=== PATIENT | female | born 1940 | race Caucasian/White ===

== ENCOUNTER 2021-01-26 00:34 | Inpatient (IN) ==
[2021-01-26] MEDS ORDERED: ALBUTEROL 2.5 MG/3 ML NEB RESP TX STA ×2 (00:51→01:35)
[2021-01-26 01:11] LABS: Basophils % 0.2 % (0.0-0.8); Eosinophils % 0.3 % (0.00-10.9); Hematocrit 40.8 VOL% (35.7-47.0); Hemoglobin 13.1 GM/DL (12.0-16.0); Immature Granulocytes % 0.5 %; Immature Granulocytes Absolute 0.06 #; Lymphocytes # 1.7 10*3/uL (1.4-4.0); Lymphocytes % 12.8 % (21.3-54.2); Mean Corpuscular HGB Conc 32.1 GM/DL (32-36); Mean Corpuscular Volume 91.5 FL (87-102); Mean Platelet Volume 9.3 FL (9.6-12.0); Monocytes % 7.5 % (1.7-12.7); Neutrophils % 78.7 % (38.7-73.9); Platelet Count 216 T/CUMM (130-400); Red Blood Count 4.46 MC/CUMM (3.8-5.5); Red Cell Distribution Width 13.2 % (9.3-17.3); White Blood Count 13.2 T/CUMM (4-12)
[2021-01-26] MEDS ORDERED: cefTRIAXone 1,000 MG in SODIUM CHLORIDE 0.9% 100 ML IV STA (01:27)
[2021-01-26] MEDS ORDERED: methylPREDNISolone SOD SUC 40 MG/1 ML VIAL IV STA (01:28)
[2021-01-26] MEDS ORDERED: AZITHROMYCIN INJ 500 MG in SODIUM CHLORIDE 0.9% 250 ML IV STA (01:28)
[2021-01-26] MEDS ORDERED: FUROSEMIDE 100 MG/10 ML VIAL IV STA (01:31)
[2021-01-26] MEDS ORDERED: FUROSEMIDE 40 MG/4 ML VIAL ONE (01:35)
[2021-01-26 01:49] LABS: ABG HCO3 24.3 MMOL/L (20-26); ABG PCO2 36.9 MM HG (35-48); ABG PH 7.422 (7.35-7.45); ABG PO2 68.4 MM HG (80-95); ABG TCO2 20.9 MMOL/L (23-27)
[2021-01-26 02:05] LABS: Alanine Aminotransferase 44 U/L (13-56); Albumin 3.1 G/DL (3.4-5.0); Alkaline Phosphatase 86 U/L (45-117); Aspartate Amino Transferase 86 U/L (0-37); Bilirubin,Total < 0.39 MG/DL (0.20-1.00); Blood Urea Nitrogen 18 MG/DL (7-18); Calcium 9.1 MG/DL (8.5-10.1); Carbon Dioxide 22 MMOL/L (21-32); Estimated Glom Filtration Rate 60 ML/MIN; Glucose 237 MG/DL (74-106); Osmolality,Calculated 288.4 MOS/KG (273-304); Potassium 3.4 MMOL/L (3.5-5.1); Sodium 140 MMOL/L (136-145); Total Protein 6.4 G/DL (6.4-8.2)
[2021-01-26] MEDS ORDERED: ONDANSETRON 4 MG/2 ML VIAL IV PRN (03:03)
[2021-01-26] MEDS ORDERED: ALBUTEROL 2.5 MG/3 ML NEB RESP TX PRN (03:03)
[2021-01-26] MEDS ORDERED: ACETAMINOPHEN 325 MG TABLET PO PRN (03:19)
[2021-01-26] MEDS ORDERED: POTASSIUM CHLORIDE 20 MEQ TABLET PO ONE (03:23)
[2021-01-26] MEDS ORDERED: NITROGLYCERIN SL 0.4 MG TABLET SL PRN (03:27)
[2021-01-26] MEDS ORDERED: MORPHINE 2 MG/1 ML SYRINGE IV PRN (03:27)
[2021-01-26 05:19] LABS: Alanine Aminotransferase 72 U/L (13-56); Albumin 3.4 G/DL (3.4-5.0); Alkaline Phosphatase 90 U/L (45-117); Aspartate Amino Transferase 318 U/L (0-37); Bilirubin,Total < 0.39 MG/DL (0.20-1.00); Blood Urea Nitrogen 19 MG/DL (7-18); Calcium 8.7 MG/DL (8.5-10.1); Carbon Dioxide 24 MMOL/L (21-32); Estimated Glom Filtration Rate 70 ML/MIN; Glucose 192 MG/DL (74-106); Osmolality,Calculated 289.1 MOS/KG (273-304); Potassium 4.3 MMOL/L (3.5-5.1); Sodium 142 MMOL/L (136-145); Total Protein 6.7 G/DL (6.4-8.2)
[2021-01-26 05:32] LABS: Risk Ratio 2.75; Thyroid Stimulating Hormone 1.72 uIU/ml (0.358-3.74); VLDL Cholesterol 19.6 MG/DL
[2021-01-26 05:33] LABS: CKMB % 11.4 %
[2021-01-26 05:37] LABS: High Sensitive Troponin I* 45515.5 ng/L (0-54)
[2021-01-26] MEDS ORDERED: HEPARIN 5,000 UNIT/1 ML VIAL IV ONE (06:58)
[2021-01-26] MEDS ORDERED: HEPARIN DRIP 25,000 UNITS/500 ML PREMIX IV SCH (07:00)
[2021-01-26] MEDS ORDERED: DIAZEPAM 5 MG TABLET PO ONE (08:22)
[2021-01-26] MEDS ORDERED: diphenhydrAMINE CAP 25 MG CAPSULE PO ONE (08:22)
[2021-01-26] MEDS ORDERED: APIXABAN 5 MG TABLET PO SCH (09:00)
[2021-01-26] MEDS ORDERED: ASPIRIN EC 81 MG TABLET PO SCH (09:00)
[2021-01-26] MEDS ORDERED: METOPROLOL SUCCINATE XL 25 MG TABLET PO SCH (09:00)
[2021-01-26] MEDS ORDERED: lisinopriL 20 MG TABLET PO SCH (09:00)
[2021-01-26 10:04] LABS: INR 1.1; PT Patient Result 12.6 SECS (10.5-12.0)
[2021-01-26 10:05] LABS: Partial Thromboplastin Time 143.5 SECS (23.8-32.1)
[2021-01-26] MEDS: carvediloL 6.25 MG TABLET PO SCH ×2 (11:42→21:45)
[2021-01-26] MEDS: NITROGLYCERIN 2% OINT 1 INCH/GM PACK TOP SCH ×3 (11:42→18:39)
[2021-01-26] MEDS: FUROSEMIDE 40 MG/4 ML VIAL IV SCH ×2 (11:47→17:18)
[2021-01-26] MEDS: FAMOTIDINE 20 MG/2 ML VIAL IV SCH ×2 (11:48→21:45)
[2021-01-26] MEDS ORDERED: LIDOCAINE 1% 20 ML VIAL ONE (14:32)
[2021-01-26] MEDS ORDERED: MIDAZOLAM 2 MG/2 ML VIAL ONE (14:41)
[2021-01-26] MEDS ORDERED: fentaNYL 100 MCG/2 ML VIAL ONE (14:42)
[2021-01-26 15:26] LABS: Bilirubin,Urine Negative (Negative); Blood, Urine Moderate mg/dL (Negative); Glucose,Urine (UA) Negative (Negative); Hyaline Casts,Urine 4 /LPF (0-3); Ketones,Urine Negative (Negative); Mucus,Urine Occasional /LPF (Occasional); Nitrite,Urine Negative (Negative); Protein,Urine Negative; RBC,Urine 7 /HPF (0-4); Urine Appearance CLEAR (Clear); Urine Color Colorless (Yellow); Urine Specific Gravity 1.006 (1.001-1.035); Urine Urobilinogen < 2.0 EU/DL (<2.0)
[2021-01-26] MEDS ORDERED: SODIUM CHLORIDE 0.9% 1,000 ML IV SCH (16:15)
[2021-01-26] MEDS: ASPIRIN 325 MG TABLET PO SCH (17:18)
[2021-01-26] MEDS ORDERED: SIMVASTATIN 40 MG TABLET PO SCH (21:00)
[2021-01-26] MEDS ORDERED: ENOXAPARIN 30 MG/0.3 ML SYRINGE SUBCUT SCH (21:00)
[2021-01-26] MEDS: AMITRIPTYLINE 25 MG TABLET PO SCH (21:45)
[2021-01-26] MEDS: MELATONIN 3 MG TABLET PO PRN (21:45)
[2021-01-26] MEDS: ROSUVASTATIN 20 MG TABLET PO SCH (21:45)
[2021-01-27] MEDS: NITROGLYCERIN 2% OINT 1 INCH/GM PACK TOP SCH ×4 (00:15→19:15)
[2021-01-27 04:40] LABS: Basophils % 0.1 % (0.0-0.8); Hematocrit 37.2 VOL% (35.7-47.0); Hemoglobin 11.7 GM/DL (12.0-16.0); Immature Granulocytes % 0.3 %; Immature Granulocytes Absolute 0.04 #; Lymphocytes # 2.3 10*3/uL (1.4-4.0); Lymphocytes % 19.9 % (21.3-54.2); Mean Corpuscular HGB Conc 31.5 GM/DL (32-36); Mean Corpuscular Volume 93.5 FL (87-102); Mean Platelet Volume 9.8 FL (9.6-12.0); Monocytes % 9.8 % (1.7-12.7); Neutrophils % 69.9 % (38.7-73.9); Platelet Count 171 T/CUMM (130-400); Red Blood Count 3.98 MC/CUMM (3.8-5.5); Red Cell Distribution Width 13.5 % (9.3-17.3); White Blood Count 11.6 T/CUMM (4-12)
[2021-01-27 05:14] LABS: Albumin 2.8 G/DL (3.4-5.0); Bilirubin,Total 0.4 MG/DL (0.20-1.00); Calcium 8.5 MG/DL (8.5-10.1); Potassium 3.8 MMOL/L (3.5-5.1); Total Protein 5.9 G/DL (6.4-8.2)
[2021-01-27] MEDS ORDERED: GLUCAGON 1 MG VIAL IM PRN (08:34)
[2021-01-27] MEDS ORDERED: DEXTROSE 50% 25 GM/50 ML SYRINGE IV PRN (08:34)
[2021-01-27] MEDS: FUROSEMIDE 40 MG/4 ML VIAL IV SCH ×2 (09:45→16:00)
[2021-01-27] MEDS: carvediloL 6.25 MG TABLET PO SCH ×2 (09:45→20:42)
[2021-01-27] MEDS: ASPIRIN 325 MG TABLET PO SCH (09:45)
[2021-01-27 09:53] LABS: ABG HCO3 27.1 MMOL/L (20-26); ABG Oxygen Saturation 97.2 % (95-100); ABG PCO2 41.6 MM HG (35-48); ABG PO2 93.7 MM HG (80-95); ABG TCO2 24.6 MMOL/L (23-27); Allen Test Positive
[2021-01-27] MEDS: CHLORHEXIDINE 0.12% ORAL RINSE 60 ML BOTTLE SWISH/SPIT SCH ×2 (10:00→20:47)
[2021-01-27] MEDS: FAMOTIDINE 20 MG/2 ML VIAL IV SCH ×2 (10:00→20:41)
[2021-01-27] MEDS: CHLORHEXIDINE 4% SOLN 118 ML BOTTLE TOP SCH ×3 (11:11→21:22)
[2021-01-27] MEDS: ASCORBIC ACID 500 MG TABLET PO SCH ×2 (12:56→20:42)
[2021-01-27] MEDS: ROSUVASTATIN 20 MG TABLET PO SCH (20:41)
[2021-01-27] MEDS: AMITRIPTYLINE 25 MG TABLET PO SCH (20:41)
[2021-01-27] MEDS: MELATONIN 3 MG TABLET PO PRN (21:22)
[2021-01-28] MEDS: NITROGLYCERIN 2% OINT 1 INCH/GM PACK TOP SCH ×3 (00:48→12:01)
[2021-01-28] MEDS ORDERED: PAPAVERINE 60 MG/2 ML VIAL ONE ×2 (04:13→09:51)
[2021-01-28] MEDS ORDERED: VANCOMYCIN 500 MG VIAL ONE (04:13)
[2021-01-28] MEDS ORDERED: VANCOMYCIN 1,000 MG VIAL ONE (04:13)
[2021-01-28 04:22] LABS: Basophils % 0.3 % (0.0-0.8); Eosinophils # 0.1 10*3/uL (0.0-0.87); Eosinophils % 0.5 % (0.00-10.9); Hematocrit 38.4 VOL% (35.7-47.0); Hemoglobin 12.3 GM/DL (12.0-16.0); Immature Granulocytes % 0.3 %; Immature Granulocytes Absolute 0.03 #; Lymphocytes # 2.8 10*3/uL (1.4-4.0); Mean Corpuscular Volume 93.4 FL (87-102); Mean Platelet Volume 10.1 FL (9.6-12.0); Monocytes % 11.1 % (1.7-12.7); Neutrophils % 58.8 % (38.7-73.9); Platelet Count 153 T/CUMM (130-400); Red Blood Count 4.11 MC/CUMM (3.8-5.5); Red Cell Distribution Width 13.6 % (9.3-17.3); White Blood Count 9.6 T/CUMM (4-12)
[2021-01-28 04:57] LABS: Albumin 2.8 G/DL (3.4-5.0); Bilirubin,Total 0.4 MG/DL (0.20-1.00); Calcium 8.6 MG/DL (8.5-10.1); Osmolality,Calculated 279.8 MOS/KG (273-304)
[2021-01-28] MEDS ORDERED: PANTOPRAZOLE 40 MG TABLET PO ONE (05:00)
[2021-01-28] MEDS ORDERED: CEFUROXIME INJ 1,500 MG in SODIUM CHLORIDE 0.9% 100 ML IV ONE (05:00)
[2021-01-28] MEDS ORDERED: SODIUM CHLORIDE 0.9% 1,000 ML IV SCH (05:00)
[2021-01-28] MEDS ORDERED: DIAZEPAM 5 MG TABLET PO ONE (05:00)
[2021-01-28 05:05] LABS: High Sensitive Troponin I* 23559.9 ng/L (0-54)
[2021-01-28] MEDS ORDERED: FAMOTIDINE 20 MG/2 ML VIAL IV ONE (06:01)
[2021-01-28] MEDS ORDERED: MINERAL OIL/PETROLATUM OPH OINT 3.5 GM TUBE ONE (06:02)
[2021-01-28] MEDS ORDERED: LACTATED RINGERS 1,000 ML IV ONE (06:08)
[2021-01-28] MEDS ORDERED: LIDOCAINE 2% 5 ML VIAL ONE ×2 (06:08→11:32)
[2021-01-28] MEDS ORDERED: VECURONIUM 10 MG VIAL IV ONE ×3 (06:08→08:59)
[2021-01-28] MEDS ORDERED: AMINOCAPROIC ACID 5,000 MG/20 ML VIAL ONE (06:08)
[2021-01-28] MEDS ORDERED: HEPARIN/NACL 0.9% 2 UNITS/ML 1,000 UNIT/500 ML BAG IV ONE (06:08)
[2021-01-28] MEDS ORDERED: PHENYLEPHRINE DRIP 20 MG/250 ML PREMIX IV ONE (06:08)
[2021-01-28] MEDS ORDERED: SEVOFLURANE 1 UNIT/15 MINUTE INH ONE (06:08)
[2021-01-28] MEDS ORDERED: SODIUM CHLORIDE 0.9% 250 ML IV ONE (06:08)
[2021-01-28] MEDS ORDERED: SODIUM CHLORIDE 0.9% 1,000 ML IV ONE (06:08)
[2021-01-28] MEDS ORDERED: MIDAZOLAM 10 MG/2 ML VIAL ONE ×4 (06:09→09:00)
[2021-01-28] MEDS ORDERED: CALCIUM CHLORIDE 1,000 MG/10 ML VIAL IV ONE ×2 (06:09→11:38)
[2021-01-28] MEDS ORDERED: SUFentanil 250 MCG/5 ML AMP ONE ×2 (06:09→07:39)
[2021-01-28] MEDS ORDERED: NITROPRUSSIDE 50 MG/2 ML VIAL ONE (06:59)
[2021-01-28] MEDS ORDERED: SODIUM BICARBONATE 50 MEQ/50 ML VIAL IV ONE ×2 (06:59→11:33)
[2021-01-28] MEDS ORDERED: POTASSIUM CHLORIDE RIDER 20 MEQ/100 ML PREMIX IV ONE (06:59)
[2021-01-28] MEDS ORDERED: PHENYLEPHRINE DRIP 40 MG/250 ML PREMIX IV ONE (07:00)
[2021-01-28] MEDS ORDERED: CALCIUM CHLORIDE 1,000 MG/10 ML SYRINGE IV ONE (07:00)
[2021-01-28] MEDS ORDERED: ALBUMIN 5% 25.0 GM/500 ML VIAL IV ONE (07:00)
[2021-01-28 07:34] LABS: ABG Base Excess 4.4 MMOL/L (-2.5-2.5); ABG HCO3 28.4 MMOL/L (20-26); ABG PCO2 36.4 MM HG (35-48); ABG TCO2 24.8 MMOL/L (23-27); Glucose Heart Surgery 107 MG/DL (74-106); Hematocrit Heart Surgery 33.3 PERCENT (37-47); Hemoglobin Heart Surgery 10.8 G/DL (12.0-16.0); Ionized Calcium Arterial 1.12 MMOL/L (1.21-1.46); PCO2 Patient Temp Arterial 36.4 MMHG; Patient Temperature 37 CELCIUS; Potassium Heart/CVR 3.2 MMOL/L (3.5-5.1); Sodium Heart/CVR 141 MMOL/L (135-145)
[2021-01-28] MEDS ORDERED: ePHEDrine 50 MG/ML VIAL ONE (07:36)
[2021-01-28] MEDS ORDERED: HEPARIN 10,000 UNIT/10 ML VIAL ONE ×2 (08:18→11:33)
[2021-01-28] MEDS ORDERED: diphenhydrAMINE 50 MG/1 ML VIAL ONE (08:59)
[2021-01-28 09:10] LABS: Hematocrit Heart Surgery 22.1 PERCENT (37-47); Hemoglobin Heart Surgery 7.1 G/DL (12.0-16.0); PCO2 Patient Temp Venous 33.7 MM HG; PH Patient Temp Venous 7.536; Potassium Heart/CVR 4.1 MMOL/L (3.5-5.1); VBG HCO3 29.6 MEQ/L (24-28); VBG Oxygen Saturation 80.4 %; VBG PH 7.491; VBG Total CO2 28.1 MMOL/L
[2021-01-28 09:44] LABS: Hemoglobin Heart Surgery 7.7 G/DL (12.0-16.0); PCO2 Patient Temp Venous 30.7 MM HG; PH Patient Temp Venous 7.566; PO2 Patient Temp Venous 33.5 MM HG; Potassium Heart/CVR 3.8 MMOL/L (3.5-5.1); VBG Base Excess 5.8 MEQ/L (0-4); VBG HCO3 29.5 MEQ/L (24-28); VBG Oxygen Saturation 79.9 %; VBG PCO2 35.5 MMHG (41-51); VBG PH 7.519; VBG PO2 41.3 MMHG (17-40); VBG Total CO2 27.1 MMOL/L
[2021-01-28 10:12] LABS: Hematocrit Heart Surgery 24.3 PERCENT (37-47); Hemoglobin Heart Surgery 7.8 G/DL (12.0-16.0); PCO2 Patient Temp Venous 30.9 MM HG; PH Patient Temp Venous 7.56; PO2 Patient Temp Venous 34.9 MM HG; Potassium Heart/CVR 3.9 MMOL/L (3.5-5.1); VBG Base Excess 5.4 MEQ/L (0-4); VBG Oxygen Saturation 72.9 %; VBG PCO2 30.9 MMHG (41-51); VBG PH 7.56; VBG PO2 34.9 MMHG (17-40)
[2021-01-28 10:42] LABS: Hemoglobin Heart Surgery 7.7 G/DL (12.0-16.0); PCO2 Patient Temp Venous 35.6 MM HG; PH Patient Temp Venous 7.51; PO2 Patient Temp Venous 36.8 MM HG; Potassium Heart/CVR 3.6 MMOL/L (3.5-5.1); VBG Base Excess 5.2 MEQ/L (0-4); VBG HCO3 28.8 MEQ/L (24-28); VBG Oxygen Saturation 72.3 %; VBG PCO2 35.6 MMHG (41-51); VBG PH 7.51; VBG PO2 36.8 MMHG (17-40); VBG Total CO2 26.7 MMOL/L
[2021-01-28] MEDS ORDERED: THROMBIN TOPICAL (RECOMBINANT) 5,000 UNIT VIAL TOP ONE (11:08)
[2021-01-28 11:29] LABS: ABG Base Excess 1.4 MMOL/L (-2.5-2.5); ABG HCO3 25.7 MMOL/L (20-26); ABG Oxygen Saturation 99.7 % (95-100); ABG PH 7.462 (7.35-7.45); ABG TCO2 23.2 MMOL/L (23-27); Glucose Heart Surgery 209 MG/DL (74-106); Hematocrit Heart Surgery 25.4 PERCENT (37-47); Hemoglobin Heart Surgery 8.2 G/DL (12.0-16.0); Ionized Calcium Arterial 1.18 MMOL/L (1.21-1.46); PH Patient Temp Arterial 7.462; Patient Temperature 37 CELCIUS; Sodium Heart/CVR 138 MMOL/L (135-145)
[2021-01-28] MEDS ORDERED: MAGNESIUM SULFATE 5 GM/10 ML VIAL IV ONE (11:32)
[2021-01-28] MEDS ORDERED: DEXTROSE 5% KCL 20 MEQ 20 MEQ/1,000 ML BAG IV ONE (11:32)
[2021-01-28] MEDS ORDERED: methylPREDNISolone SOD SUC 1,000 MG/8 ML VIAL ONE (11:32)
[2021-01-28] MEDS ORDERED: MANNITOL 100 GM/500 ML BAG IV ONE (11:32)
[2021-01-28] MEDS ORDERED: ALBUMIN 25% 25 GM/100 ML VIAL IV ONE (11:32)
[2021-01-28] MEDS ORDERED: PROTAMINE SULFATE 50 MG/5 ML VIAL IV ONE ×3 (11:33→12:44)
[2021-01-28] MEDS ORDERED: PROTAMINE SULFATE 250 MG/25 ML VIAL IV ONE (11:33)
[2021-01-28] MEDS ORDERED: FUROSEMIDE 20 MG/2 ML VIAL ONE (11:33)
[2021-01-28] MEDS: FUROSEMIDE 40 MG/4 ML VIAL IV SCH (12:00)
[2021-01-28] MEDS: ASPIRIN 325 MG TABLET PO SCH (12:00)
[2021-01-28] MEDS: ASCORBIC ACID 500 MG TABLET PO SCH (12:01)
[2021-01-28] MEDS: FAMOTIDINE 20 MG/2 ML VIAL IV SCH (12:01)
[2021-01-28] MEDS: CHLORHEXIDINE 0.12% ORAL RINSE 60 ML BOTTLE SWISH/SPIT SCH ×2 (12:01→20:29)
[2021-01-28] MEDS: carvediloL 6.25 MG TABLET PO SCH (12:01)
[2021-01-28] MEDS: LACTATED RINGERS 1,000 ML IV PRN ×3 (12:30→19:22)
[2021-01-28] MEDS ORDERED: INSULIN REGULAR 100 UNIT/ML IV PRN (13:28)
[2021-01-28] MEDS ORDERED: ACETAMINOPHEN 650 MG SUPP RECTAL PRN (13:28)
[2021-01-28] MEDS ORDERED: INSULIN REGULAR 100 UNIT/ML IV ONE (13:28)
[2021-01-28] MEDS ORDERED: ONDANSETRON 4 MG/2 ML VIAL IV PRN (13:28)
[2021-01-28] MEDS ORDERED: MAGNESIUM SULF RIDER 2 GM/50 ML PREMIX IV PRN (13:28)
[2021-01-28] MEDS ORDERED: INSULIN REGULAR DRIP 100 ML IV SCH (13:28)
[2021-01-28] MEDS ORDERED: DEXTROSE 50% 25 GM/50 ML SYRINGE IV PRN ×2 (13:28)
[2021-01-28] MEDS ORDERED: VECURONIUM 10 MG VIAL IV PRN ×2 (13:28)
[2021-01-28] MEDS ORDERED: LACTATED RINGERS 250 ML IV PRN (13:28)
[2021-01-28] MEDS ORDERED: CALCIUM CHLORIDE 1,000 MG/10 ML SYRINGE IV PRN (13:28)
[2021-01-28] MEDS ORDERED: MAGNESIUM SULF RIDER 4 GM/100 ML PREMIX IV PRN (13:28)
[2021-01-28] MEDS ORDERED: PHENYLEPHRINE DRIP 40 MG/250 ML PREMIX IV PRN (13:28)
[2021-01-28] MEDS ORDERED: POTASSIUM CHLORIDE RIDER 10 MEQ/100 ML PREMIX IV PRN (13:28)
[2021-01-28] MEDS ORDERED: MIDAZOLAM 10 MG/2 ML VIAL IV PRN (13:28)
[2021-01-28 13:38] LABS: Basophils % 0.1 % (0.0-0.8); Eosinophils % 0.1 % (0.00-10.9); Hematocrit 24.7 VOL% (35.7-47.0); Hemoglobin 7.9 GM/DL (12.0-16.0); Immature Granulocytes Absolute 0.08 #; Lymphocytes # 0.9 10*3/uL (1.4-4.0); Lymphocytes % 11.2 % (21.3-54.2); Mean Corpuscular Volume 91.8 FL (87-102); Mean Platelet Volume 9.8 FL (9.6-12.0); Monocytes % 7.9 % (1.7-12.7); Neutrophils % 79.7 % (38.7-73.9); Platelet Count 114 T/CUMM (130-400); Red Blood Count 2.69 MC/CUMM (3.8-5.5); Red Cell Distribution Width 13.5 % (9.3-17.3); White Blood Count 7.8 T/CUMM (4-12)
[2021-01-28 13:42] LABS: ABG Base Excess 2.5 MMOL/L (-2.5-2.5); ABG HCO3 26.7 MMOL/L (20-26); ABG Oxygen Saturation 99.8 % (95-100); ABG PCO2 30.7 MM HG (35-48); ABG TCO2 23.2 MMOL/L (23-27); Glucose Heart Surgery 190 MG/DL (74-106); Hematocrit Heart Surgery 25.4 PERCENT (37-47); Hemoglobin Heart Surgery 8.2 G/DL (12.0-16.0); Potassium Heart/CVR 4.4 MMOL/L (3.5-5.1)
[2021-01-28 13:47] LABS: INR 1.2; PT Patient Result 12.9 SECS (10.5-12.0); Partial Thromboplastin Time 27.5 SECS (23.8-32.1)
[2021-01-28 13:56] LABS: Albumin 2.7 G/DL (3.4-5.0); Bilirubin,Total 0.8 MG/DL (0.20-1.00); Calcium 9.7 MG/DL (8.5-10.1); Osmolality,Calculated 294.8 MOS/KG (273-304); Potassium 4.5 MMOL/L (3.5-5.1); Total Protein 5.3 G/DL (6.4-8.2)
[2021-01-28 14:03] LABS: CKMB % 7.1 %
[2021-01-28 14:05] LABS: High Sensitive Troponin I* 26435.8 ng/L (0-54)
[2021-01-28] MEDS ORDERED: NITROGLYCERIN DRIP 50 MG/250 ML BOTTLE IV ONE (14:28)
[2021-01-28] MEDS: NITROGLYCERIN DRIP 50 MG/250 ML BOTTLE IV PRN (14:28)
[2021-01-28] MEDS: SODIUM CHLORIDE 0.45% 1,000 ML IV SCH ×2 (14:44→14:45)
[2021-01-28] MEDS: KETOROLAC 15 MG/1 ML VIAL IV SCH ×2 (14:54→20:26)
[2021-01-28 15:03] LABS: Band Neutrophils 3 % (0-10); Lymphocytes 13 % (20-55); Segmented Neutrophils 81 % (50-85)
[2021-01-28 15:06] LABS: Atypical Lymphocytes Few
[2021-01-28 15:07] LABS: Smudge Cells Few
[2021-01-28 15:08] LABS: Platelet Estimate Normal; Total Cells Counted 100
[2021-01-28] MEDS: POTASSIUM CHLORIDE RIDER 20 MEQ/100 ML PREMIX IV PRN ×5 (15:30→22:39)
[2021-01-28 15:43] LABS: ABG Base Excess 2.3 MMOL/L (-2.5-2.5); ABG HCO3 26.5 MMOL/L (20-26); ABG Oxygen Saturation 97.7 % (95-100); ABG PCO2 34.2 MM HG (35-48); ABG PO2 90.1 MM HG (80-95); ABG TCO2 22.6 MMOL/L (23-27); Glucose Heart Surgery 207 MG/DL (74-106); Hematocrit Heart Surgery 35.7 PERCENT (37-47); Hemoglobin Heart Surgery 11.6 G/DL (12.0-16.0); Potassium Heart/CVR 3.7 MMOL/L (3.5-5.1)
[2021-01-28] MEDS: NITROPRUSSIDE 100 MG in DEXTROSE 5% 250 ML IV PRN (15:45)
[2021-01-28] MEDS: ALBUMIN 5% 12.5 GM/250 ML VIAL IV PRN ×5 (16:20→21:41)
[2021-01-28] MEDS: MIDAZOLAM 2 MG/2 ML VIAL IV PRN ×2 (17:15→20:19)
[2021-01-28 17:51] LABS: ABG Base Excess 0.5 MMOL/L (-2.5-2.5); ABG HCO3 24.9 MMOL/L (20-26); ABG Oxygen Saturation 98.8 % (95-100); ABG PH 7.487 (7.35-7.45); ABG TCO2 21.6 MMOL/L (23-27); Glucose Heart Surgery 200 MG/DL (74-106); Hematocrit Heart Surgery 27.5 PERCENT (37-47); Hemoglobin Heart Surgery 8.9 G/DL (12.0-16.0); Potassium Heart/CVR 4.7 MMOL/L (3.5-5.1)
[2021-01-28] MEDS ORDERED: DOBUTamine 500 MG/250 ML PREMIX IV ONE (18:10)
[2021-01-28] MEDS ORDERED: FUROSEMIDE 40 MG/4 ML VIAL ONE (18:16)
[2021-01-28] MEDS ORDERED: hydrALAZINE 20 MG/1 ML VIAL ONE (18:16)
[2021-01-28] MEDS: hydrALAZINE 20 MG/1 ML VIAL IV PRN (18:20)
[2021-01-28] MEDS: DOBUTamine 500 MG/250 ML PREMIX IV SCH (18:20)
[2021-01-28] MEDS ORDERED: FUROSEMIDE 40 MG/4 ML VIAL IV ONE ×2 (18:22→23:57)
[2021-01-28] MEDS: METOPROLOL TARTRATE 25 MG TABLET PO SCH (18:45)
[2021-01-28 19:23] LABS: ABG HCO3 25.3 MMOL/L (20-26); ABG Oxygen Saturation 99.3 % (95-100); ABG PCO2 33.4 MM HG (35-48); ABG PH 7.469 (7.35-7.45); ABG TCO2 22.1 MMOL/L (23-27); Glucose Heart Surgery 208 MG/DL (74-106); Hematocrit Heart Surgery 29.8 PERCENT (37-47); Hemoglobin Heart Surgery 9.6 G/DL (12.0-16.0); Potassium Heart/CVR 3.7 MMOL/L (3.5-5.1)
[2021-01-28 19:44] LABS: CKMB % 6.2 %
[2021-01-28 19:46] LABS: High Sensitive Troponin I* 22079.8 ng/L (0-54)
[2021-01-28] MEDS: CEFUROXIME INJ 1,500 MG in SODIUM CHLORIDE 0.9% 100 ML IV SCH (20:27)
[2021-01-28] MEDS: DEXMEDETOMIDINE 200 MCG in SODIUM CHLORIDE 0.9% 48 ML IV PRN (21:05)
[2021-01-28 21:20] LABS: ABG Base Excess 1.6 MMOL/L (-2.5-2.5); ABG HCO3 24.4 MMOL/L (20-26); ABG Oxygen Saturation 98.2 % (95-100); ABG PCO2 32.5 MM HG (35-48); ABG PH 7.494 (7.35-7.45); ABG PO2 144.1 MM HG (80-95); ABG TCO2 25.4 MMOL/L (23-27); Glucose Heart Surgery 181 MG/DL (74-106); Hemoglobin Heart Surgery 11.1 G/DL (12.0-16.0); Potassium Heart/CVR 3.9 MMOL/L (3.5-5.1)
[2021-01-28] MEDS: MORPHINE 10 MG/1 ML VIAL IV PRN (21:27)
[2021-01-28 22:01] LABS: CKMB % 7.4 %; High Sensitive Troponin I* 21265.1 ng/L (0-54)
[2021-01-28 22:27] LABS: ABG Base Excess 0.7 MMOL/L (-2.5-2.5); ABG HCO3 25.1 MMOL/L (20-26); ABG PCO2 33.4 MM HG (35-48); ABG PH 7.464 (7.35-7.45); ABG TCO2 21.7 MMOL/L (23-27); Glucose Heart Surgery 171 MG/DL (74-106); Hemoglobin Heart Surgery 10.3 G/DL (12.0-16.0); Potassium Heart/CVR 3.8 MMOL/L (3.5-5.1)
[2021-01-29 00:09] LABS: ABG Base Excess 0.7 MMOL/L (-2.5-2.5); ABG HCO3 24.7 MMOL/L (20-26); ABG Oxygen Saturation 97.3 % (95-100); ABG PCO2 37.7 MM HG (35-48); ABG PH 7.435 (7.35-7.45); ABG PO2 105.8 MM HG (80-95); ABG TCO2 25.9 MMOL/L (23-27); Glucose Heart Surgery 156 MG/DL (74-106); Hemoglobin Heart Surgery 11.2 G/DL (12.0-16.0); Potassium Heart/CVR 4.3 MMOL/L (3.5-5.1)
[2021-01-29] MEDS: KETOROLAC 15 MG/1 ML VIAL IV SCH ×4 (01:30→19:35)
[2021-01-29] MEDS: MIDAZOLAM 2 MG/2 ML VIAL IV PRN (02:52)
[2021-01-29 03:25] LABS: Hematocrit Heart Surgery 32.7 PERCENT (37-47); Hemoglobin Heart Surgery 10.6 G/DL (12.0-16.0); PCO2 Patient Temp Venous 45.8 MM HG; PH Patient Temp Venous 7.383; PO2 Patient Temp Venous 35.6 MM HG; Potassium Heart/CVR 4.1 MMOL/L (3.5-5.1); VBG Base Excess 1.8 MEQ/L (0-4); VBG HCO3 25.4 MEQ/L (24-28); VBG Oxygen Saturation 62.4 %; VBG PCO2 45.8 MMHG (41-51); VBG PH 7.383; VBG PO2 35.6 MMHG (17-40); VBG Total CO2 24.9 MMOL/L
[2021-01-29 04:27] LABS: ABG Base Excess 1.6 MMOL/L (-2.5-2.5); ABG HCO3 25.9 MMOL/L (20-26); ABG Oxygen Saturation 97.2 % (95-100); ABG PCO2 39.4 MM HG (35-48); ABG PH 7.435 (7.35-7.45); ABG PO2 104.5 MM HG (80-95); ABG TCO2 27.1 MMOL/L (23-27); Glucose Heart Surgery 139 MG/DL (74-106); Hemoglobin Heart Surgery 11.3 G/DL (12.0-16.0); Potassium Heart/CVR 4.1 MMOL/L (3.5-5.1)
[2021-01-29 04:28] LABS: Basophils % 0.1 % (0.0-0.8); Hematocrit 31.7 VOL% (35.7-47.0); Immature Granulocytes % 0.5 %; Immature Granulocytes Absolute 0.04 #; Lymphocytes # 0.8 10*3/uL (1.4-4.0); Lymphocytes % 9.5 % (21.3-54.2); Mean Corpuscular HGB Conc 33.1 GM/DL (32-36); Mean Corpuscular Volume 88.3 FL (87-102); Mean Platelet Volume 9.9 FL (9.6-12.0); Monocytes % 6.6 % (1.7-12.7); Neutrophils % 83.3 % (38.7-73.9); Platelet Count 85 T/CUMM (130-400); Red Blood Count 3.59 MC/CUMM (3.8-5.5); Red Cell Distribution Width 14.6 % (9.3-17.3); White Blood Count 8.7 T/CUMM (4-12)
[2021-01-29 04:29] LABS: Hemoglobin 10.5 GM/DL (12.0-16.0)
[2021-01-29] MEDS: DEXMEDETOMIDINE 200 MCG in SODIUM CHLORIDE 0.9% 48 ML IV PRN ×2 (04:48→13:31)
[2021-01-29 04:53] LABS: Albumin 3.3 G/DL (3.4-5.0); Bilirubin,Direct 0.24 MG/DL (0.0-0.20); Bilirubin,Total 0.8 MG/DL (0.20-1.00); CKMB % 8.2 %; Calcium 8.1 MG/DL (8.5-10.1); High Sensitive Troponin I* 21605.3 ng/L (0-54); Osmolality,Calculated 292.7 MOS/KG (273-304); Potassium 4.2 MMOL/L (3.5-5.1); Total Protein 5.3 G/DL (6.4-8.2)
[2021-01-29 05:07] LABS: Hypochromia Slight; Microcytosis Slight; Platelet Estimate Decreased
[2021-01-29] MEDS: METOPROLOL TARTRATE 25 MG TABLET PO SCH ×2 (05:54→18:20)
[2021-01-29 07:44] LABS: ABG Base Excess 1.7 MMOL/L (-2.5-2.5); ABG HCO3 25.9 MMOL/L (20-26); ABG Oxygen Saturation 97.4 % (95-100); ABG PH 7.431 (7.35-7.45); ABG PO2 92.7 MM HG (80-95); ABG TCO2 23.4 MMOL/L (23-27); Glucose Heart Surgery 134 MG/DL (74-106); Hematocrit Heart Surgery 32.6 PERCENT (37-47); Hemoglobin Heart Surgery 10.6 G/DL (12.0-16.0); Potassium Heart/CVR 4.2 MMOL/L (3.5-5.1)
[2021-01-29] MEDS: CEFUROXIME INJ 1,500 MG in SODIUM CHLORIDE 0.9% 100 ML IV SCH ×2 (10:03→21:21)
[2021-01-29] MEDS: ALBUMIN 5% 12.5 GM/250 ML VIAL IV PRN ×3 (10:08→21:12)
[2021-01-29] MEDS ORDERED: GLUCAGON 1 MG VIAL IM PRN (10:12)
[2021-01-29] MEDS ORDERED: DEXTROSE 50% 25 GM/50 ML SYRINGE IV PRN (10:16)
[2021-01-29] MEDS: FUROSEMIDE 40 MG/4 ML VIAL IV SCH ×2 (11:25→16:42)
[2021-01-29] MEDS: CHLORHEXIDINE 0.12% ORAL RINSE 60 ML BOTTLE SWISH/SPIT SCH ×2 (11:26→20:08)
[2021-01-29] MEDS: MORPHINE 10 MG/1 ML VIAL IV PRN (12:23)
[2021-01-29 13:52] LABS: ABG Base Excess 1.3 MMOL/L (-2.5-2.5); ABG HCO3 25.6 MMOL/L (20-26); ABG Oxygen Saturation 96.2 % (95-100); ABG PCO2 39.6 MM HG (35-48); ABG PH 7.422 (7.35-7.45); ABG PO2 82.3 MM HG (80-95); ABG TCO2 23.5 MMOL/L (23-27); Glucose Heart Surgery 158 MG/DL (74-106); Hematocrit Heart Surgery 29.8 PERCENT (37-47); Hemoglobin Heart Surgery 9.6 G/DL (12.0-16.0); Potassium Heart/CVR 3.7 MMOL/L (3.5-5.1)
[2021-01-29 13:55] LABS: VBG HCO3 25.7 MEQ/L (24-28); VBG Oxygen Saturation 65.7 %; VBG PCO2 44.9 MMHG (41-51); VBG PH 7.393; VBG PO2 37.7 MMHG (17-40); VBG Total CO2 25.1 MMOL/L
[2021-01-29] MEDS: INSULIN REGULAR 100 UNIT/ML SUBCUT SCH ×3 (14:05→23:22)
[2021-01-29] MEDS: POTASSIUM CHLORIDE RIDER 20 MEQ/100 ML PREMIX IV PRN ×2 (14:06→23:16)
[2021-01-29 14:12] LABS: High Sensitive Troponin I* 16419.5 ng/L (0-54)
[2021-01-29 15:08] LABS: ABG Base Excess 2.7 MMOL/L (-2.5-2.5); ABG HCO3 26.8 MMOL/L (20-26); ABG Oxygen Saturation 96.1 % (95-100); ABG PCO2 38.9 MM HG (35-48); ABG PH 7.447 (7.35-7.45); ABG PO2 82.3 MM HG (80-95); ABG TCO2 24.5 MMOL/L (23-27); Glucose Heart Surgery 149 MG/DL (74-106); Hematocrit Heart Surgery 29.5 PERCENT (37-47); Hemoglobin Heart Surgery 9.5 G/DL (12.0-16.0); Potassium Heart/CVR 4.2 MMOL/L (3.5-5.1)
[2021-01-29] MEDS: SODIUM CHLORIDE 0.45% 1,000 ML IV SCH ×2 (15:11→15:12)
[2021-01-29] MEDS ORDERED: NITROPRUSSIDE 50 MG/2 ML VIAL ONE (15:35)
[2021-01-29] MEDS: DOBUTamine 500 MG/250 ML PREMIX IV SCH ×2 (16:46→18:00)
[2021-01-29] MEDS: NITROPRUSSIDE 100 MG in DEXTROSE 5% 250 ML IV PRN (16:47)
[2021-01-29] MEDS: NITROGLYCERIN DRIP 50 MG/250 ML BOTTLE IV PRN (16:47)
[2021-01-29 17:07] LABS: ABG Base Excess 2.9 MMOL/L (-2.5-2.5); ABG Oxygen Saturation 97.3 % (95-100); ABG PH 7.456 (7.35-7.45); ABG PO2 87.3 MM HG (80-95); ABG TCO2 24.4 MMOL/L (23-27); Glucose Heart Surgery 142 MG/DL (74-106); Hematocrit Heart Surgery 29.8 PERCENT (37-47); Hemoglobin Heart Surgery 9.6 G/DL (12.0-16.0); Potassium Heart/CVR 3.9 MMOL/L (3.5-5.1)
[2021-01-29] MEDS ORDERED: MORPHINE 2 MG/1 ML SYRINGE IV PRN (17:15)
[2021-01-29] MEDS ORDERED: MORPHINE 2 MG/1 ML SYRINGE ONE (17:29)
[2021-01-29] MEDS: MORPHINE 2 MG/1 ML SYRINGE IV PRN (17:30)
[2021-01-29] MEDS ORDERED: MORPHINE 10 MG/1 ML VIAL IV PRN (17:43)
[2021-01-29 18:31] LABS: ABG Base Excess 2.4 MMOL/L (-2.5-2.5); ABG HCO3 26.5 MMOL/L (20-26); ABG Oxygen Saturation 95.9 % (95-100); ABG PCO2 38.7 MM HG (35-48); ABG PH 7.444 (7.35-7.45); ABG TCO2 24.1 MMOL/L (23-27); Glucose Heart Surgery 146 MG/DL (74-106); Hematocrit Heart Surgery 30.3 PERCENT (37-47); Hemoglobin Heart Surgery 9.8 G/DL (12.0-16.0); Potassium Heart/CVR 3.9 MMOL/L (3.5-5.1)
[2021-01-29] MEDS ORDERED: AMIODARONE INJ 150 MG in DEXTROSE 5% 100 ML IV ONE (18:59)
[2021-01-29] MEDS ORDERED: AMIODARONE INJ 450 MG in DEXTROSE 5% 241 ML IV SCH (19:00)
[2021-01-29] MEDS ORDERED: SODIUM CHLORIDE 0.45% 1,000 ML IV SCH (19:02)
[2021-01-29] MEDS: oxyCODONE/ACETAMINOPHEN 5-325 MG TABLET PO PRN (20:07)
[2021-01-29] MEDS: LACTATED RINGERS 1,000 ML IV PRN (23:20)
[2021-01-30] MEDS: MORPHINE 2 MG/1 ML SYRINGE IV PRN ×2 (00:12→02:40)
[2021-01-30] MEDS ORDERED: AMIODARONE INJ 450 MG in DEXTROSE 5% 241 ML IV SCH (02:00)
[2021-01-30] MEDS: INSULIN REGULAR 100 UNIT/ML SUBCUT SCH ×5 (02:02→21:55)
[2021-01-30 04:32] LABS: ABG Base Excess 1.7 MMOL/L (-2.5-2.5); ABG HCO3 25.9 MMOL/L (20-26); ABG Oxygen Saturation 99.2 % (95-100); ABG PCO2 37.9 MM HG (35-48); ABG TCO2 23.7 MMOL/L (23-27); Glucose Heart Surgery 152 MG/DL (74-106); Hematocrit Heart Surgery 27.6 PERCENT (37-47); Hemoglobin Heart Surgery 8.9 G/DL (12.0-16.0)
[2021-01-30 04:33] LABS: Hematocrit 26.6 VOL% (35.7-47.0); Hemoglobin 8.8 GM/DL (12.0-16.0); Immature Granulocytes % 0.6 %; Immature Granulocytes Absolute 0.07 #; Lymphocytes # 1.4 10*3/uL (1.4-4.0); Lymphocytes % 11.4 % (21.3-54.2); Mean Corpuscular HGB Conc 33.1 GM/DL (32-36); Mean Corpuscular Volume 89.6 FL (87-102); Mean Platelet Volume 10.7 FL (9.6-12.0); Monocytes % 11.7 % (1.7-12.7); Neutrophils % 76.3 % (38.7-73.9); Platelet Count 86 T/CUMM (130-400); Red Blood Count 2.97 MC/CUMM (3.8-5.5); Red Cell Distribution Width 14.6 % (9.3-17.3); White Blood Count 11.9 T/CUMM (4-12)
[2021-01-30 04:53] LABS: Albumin 3.4 G/DL (3.4-5.0); Bilirubin,Direct 0.19 MG/DL (0.0-0.20); Bilirubin,Total 0.5 MG/DL (0.20-1.00); Calcium 7.9 MG/DL (8.5-10.1); Hypochromia Slight; Microcytosis 1+; Osmolality,Calculated 288.4 MOS/KG (273-304); Total Protein 5.5 G/DL (6.4-8.2)
[2021-01-30 04:54] LABS: Platelet Estimate Decreased
[2021-01-30] MEDS: POTASSIUM CHLORIDE RIDER 20 MEQ/100 ML PREMIX IV PRN (05:03)
[2021-01-30] MEDS: FUROSEMIDE 40 MG/4 ML VIAL IV SCH ×2 (05:04→17:50)
[2021-01-30] MEDS: METOPROLOL TARTRATE 25 MG TABLET PO SCH ×2 (05:46→17:48)
[2021-01-30] MEDS: hydrALAZINE 20 MG/1 ML VIAL IV PRN (07:35)
[2021-01-30] MEDS ORDERED: PNEUMOCOCCAL VACCINE (13 VALENT) 0.5 ML SYRINGE IM ONE (09:00)
[2021-01-30] MEDS: lisinopriL 20 MG TABLET PO SCH (09:02)
[2021-01-30] MEDS: ASPIRIN EC 81 MG TABLET PO SCH (09:02)
[2021-01-30] MEDS: CHLORHEXIDINE 0.12% ORAL RINSE 60 ML BOTTLE SWISH/SPIT SCH ×2 (09:02→21:53)
[2021-01-30] MEDS: AMIODARONE 200 MG TABLET PO SCH ×2 (09:02→21:52)
[2021-01-30] MEDS ORDERED: HEPARIN/NACL 0.9% 2 UNITS/ML 1,000 UNIT/500 ML BAG IV ONE (13:10)
[2021-01-30] MEDS ORDERED: HEPARIN/NACL 0.9% 2 UNITS/ML 1,000 UNIT/500 ML BAG IV SCH (14:00)
[2021-01-30 14:10] LABS: ABG Base Excess 0.4 MMOL/L (-2.5-2.5); ABG HCO3 21.9 MMOL/L (20-26); ABG Oxygen Saturation 97.1 % (95-100); ABG PCO2 26.7 MM HG (35-48); ABG PH 7.532 (7.35-7.45); ABG PO2 88.3 MM HG (80-95); ABG TCO2 22.7 MMOL/L (23-27); Glucose Heart Surgery 156 MG/DL (74-106); Hemoglobin Heart Surgery 12.8 G/DL (12.0-16.0); Potassium Heart/CVR 3.9 MMOL/L (3.5-5.1)
[2021-01-31] MEDS: hydrALAZINE 20 MG/1 ML VIAL IV PRN (01:30)
[2021-01-31 05:11] LABS: Basophils % 0.1 % (0.0-0.8); Hematocrit 37.6 VOL% (35.7-47.0); Hemoglobin 12.3 GM/DL (12.0-16.0); Immature Granulocytes % 1.3 %; Immature Granulocytes Absolute 0.19 #; Lymphocytes % 7.1 % (21.3-54.2); Mean Corpuscular HGB Conc 32.7 GM/DL (32-36); Mean Corpuscular Volume 89.3 FL (87-102); Mean Platelet Volume 10.3 FL (9.6-12.0); Monocytes % 8.7 % (1.7-12.7); NRBC # 0.02 10*3/uL; Neutrophils % 82.8 % (38.7-73.9); Platelet Count 109 T/CUMM (130-400); Red Blood Count 4.21 MC/CUMM (3.8-5.5); Red Cell Distribution Width 14.6 % (9.3-17.3); White Blood Count 14.6 T/CUMM (4-12)
[2021-01-31 05:36] LABS: Albumin 3.6 G/DL (3.4-5.0); Bilirubin,Direct 0.28 MG/DL (0.0-0.20); Bilirubin,Total 0.9 MG/DL (0.20-1.00); Calcium 9.1 MG/DL (8.5-10.1); Osmolality,Calculated 285.7 MOS/KG (273-304); Potassium 3.8 MMOL/L (3.5-5.1); Total Protein 6.5 G/DL (6.4-8.2)
[2021-01-31 05:46] LABS: Calcium 8.8 MG/DL (8.5-10.1); Osmolality,Calculated 285.7 MOS/KG (273-304); Potassium 3.8 MMOL/L (3.5-5.1)
[2021-01-31 05:51] LABS: CKMB % 4.2 %
[2021-01-31 05:54] LABS: High Sensitive Troponin I* 6344.4 ng/L (0-54)
[2021-01-31] MEDS: METOPROLOL TARTRATE 25 MG TABLET PO SCH (06:18)
[2021-01-31] MEDS: POTASSIUM CHLORIDE RIDER 20 MEQ/100 ML PREMIX IV PRN ×2 (06:30→07:00)
[2021-01-31] MEDS: DOCUSATE SODIUM 100 MG CAPSULE PO SCH (08:52)
[2021-01-31] MEDS: METOPROLOL TARTRATE 50 MG TABLET PO SCH ×2 (08:52→21:32)
[2021-01-31] MEDS: ASCORBIC ACID 500 MG TABLET PO SCH ×2 (08:52→21:31)
[2021-01-31] MEDS: INSULIN REGULAR 100 UNIT/ML SUBCUT SCH ×4 (08:53→21:33)
[2021-01-31] MEDS: lisinopriL 20 MG TABLET PO SCH (08:53)
[2021-01-31] MEDS: AMIODARONE 200 MG TABLET PO SCH ×2 (08:53→21:32)
[2021-01-31] MEDS: FUROSEMIDE 40 MG/4 ML VIAL IV SCH ×2 (08:53→17:00)
[2021-01-31] MEDS: ASPIRIN EC 81 MG TABLET PO SCH (08:53)
[2021-01-31] MEDS: CHLORHEXIDINE 0.12% ORAL RINSE 60 ML BOTTLE SWISH/SPIT SCH ×2 (08:54→21:37)
[2021-01-31] MEDS ORDERED: METOPROLOL TARTRATE 50 MG TABLET PO SCH ×2 (09:00)
[2021-01-31] MEDS: amLODIPine 5 MG TABLET PO SCH ×2 (14:02→21:32)
[2021-01-31] MEDS: ROSUVASTATIN 20 MG TABLET PO SCH (21:31)
[2021-01-31] MEDS: APIXABAN 5 MG TABLET PO SCH (21:32)
[2021-02-01 05:26] LABS: Basophils % 0.1 % (0.0-0.8); Hematocrit 36.7 VOL% (35.7-47.0); Immature Granulocytes % 1.1 %; Immature Granulocytes Absolute 0.16 #; Lymphocytes # 1.5 10*3/uL (1.4-4.0); Lymphocytes % 9.9 % (21.3-54.2); Mean Corpuscular HGB Conc 32.7 GM/DL (32-36); Mean Platelet Volume 10.3 FL (9.6-12.0); Monocytes % 10.6 % (1.7-12.7); Neutrophils % 78.3 % (38.7-73.9); Platelet Count 150 T/CUMM (130-400); Red Blood Count 4.08 MC/CUMM (3.8-5.5); Red Cell Distribution Width 14.6 % (9.3-17.3)
[2021-02-01 05:47] LABS: Albumin 3.4 G/DL (3.4-5.0); Bilirubin,Direct 0.25 MG/DL (0.0-0.20); Bilirubin,Indirect 0.7 MG/DL (0.0-1.0); Bilirubin,Total 0.9 MG/DL (0.20-1.00); Calcium 8.9 MG/DL (8.5-10.1); Osmolality,Calculated 286.5 MOS/KG (273-304); Potassium 3.8 MMOL/L (3.5-5.1); Total Protein 6.3 G/DL (6.4-8.2)
[2021-02-01] MEDS: INSULIN REGULAR 100 UNIT/ML SUBCUT SCH ×4 (07:51→20:41)
[2021-02-01] MEDS: ASPIRIN EC 81 MG TABLET PO SCH (08:06)
[2021-02-01] MEDS: FUROSEMIDE 40 MG/4 ML VIAL IV SCH ×2 (08:06→16:34)
[2021-02-01] MEDS: ASCORBIC ACID 500 MG TABLET PO SCH ×2 (08:06→20:40)
[2021-02-01] MEDS: METOPROLOL TARTRATE 50 MG TABLET PO SCH ×3 (08:06→20:40)
[2021-02-01] MEDS: APIXABAN 5 MG TABLET PO SCH ×2 (08:07→20:40)
[2021-02-01] MEDS: DOCUSATE SODIUM 100 MG CAPSULE PO SCH (08:07)
[2021-02-01] MEDS: amLODIPine 5 MG TABLET PO SCH (08:07)
[2021-02-01] MEDS: lisinopriL 20 MG TABLET PO SCH (08:07)
[2021-02-01] MEDS: AMIODARONE 200 MG TABLET PO SCH ×2 (08:08→20:41)
[2021-02-01] MEDS: POLYETHYLENE GLYCOL POWDER 17 GM PACK PO SCH (08:09)
[2021-02-01] MEDS: CHLORHEXIDINE 0.12% ORAL RINSE 60 ML BOTTLE SWISH/SPIT SCH ×2 (08:09→21:28)
[2021-02-01] MEDS: ROSUVASTATIN 20 MG TABLET PO SCH (20:40)
[2021-02-01] MEDS ORDERED: METOPROLOL TARTRATE 50 MG TABLET PO SCH (21:00)
[2021-02-02 05:13] LABS: Basophils % 0.1 % (0.0-0.8); Eosinophils % 0.2 % (0.00-10.9); Hematocrit 37.7 VOL% (35.7-47.0); Hemoglobin 11.9 GM/DL (12.0-16.0); Immature Granulocytes % 1.1 %; Immature Granulocytes Absolute 0.13 #; Lymphocytes # 2.6 10*3/uL (1.4-4.0); Mean Corpuscular HGB Conc 31.6 GM/DL (32-36); Mean Corpuscular Volume 91.1 FL (87-102); Mean Platelet Volume 10.1 FL (9.6-12.0); Monocytes % 13.7 % (1.7-12.7); Neutrophils % 63.9 % (38.7-73.9); Platelet Count 167 T/CUMM (130-400); Red Blood Count 4.14 MC/CUMM (3.8-5.5); Red Cell Distribution Width 14.7 % (9.3-17.3); White Blood Count 12.2 T/CUMM (4-12)
[2021-02-02 05:33] LABS: Calcium 8.5 MG/DL (8.5-10.1); Osmolality,Calculated 289.3 MOS/KG (273-304); Potassium 3.1 MMOL/L (3.5-5.1)
[2021-02-02] MEDS: POTASSIUM CHLORIDE RIDER 20 MEQ/100 ML PREMIX IV PRN ×2 (06:10→07:00)
[2021-02-02] MEDS ORDERED: ACETAMINOPHEN 325 MG TABLET PO PRN (07:40)
[2021-02-02] MEDS ORDERED: DEXTROSE 50% 25 GM/50 ML SYRINGE IV PRN (07:40)
[2021-02-02] MEDS ORDERED: MAGNESIUM SULF RIDER 2 GM/50 ML PREMIX IV PRN (07:40)
[2021-02-02] MEDS ORDERED: POTASSIUM CHLORIDE 20 MEQ TABLET PO PRN (07:40)
[2021-02-02] MEDS ORDERED: GLUCAGON 1 MG VIAL IM PRN (07:40)
[2021-02-02] MEDS ORDERED: NITROGLYCERIN SL 0.4 MG TABLET SL PRN (07:40)
[2021-02-02] MEDS ORDERED: ALUMINUM/MAGNES/SIMETH MAX STR 30 ML UDCUP PO PRN (07:40)
[2021-02-02] MEDS ORDERED: ONDANSETRON 4 MG/2 ML VIAL IV PRN (07:40)
[2021-02-02] MEDS ORDERED: MAGNESIUM SULF RIDER 4 GM/100 ML PREMIX IV PRN (07:40)
[2021-02-02] MEDS ORDERED: MAGNESIUM HYDROXIDE SUSP 30 ML UDCUP PO PRN (07:40)
[2021-02-02] MEDS: METOPROLOL TARTRATE 50 MG TABLET PO SCH ×2 (08:04→21:14)
[2021-02-02] MEDS: ASCORBIC ACID 500 MG TABLET PO SCH ×2 (08:04→21:13)
[2021-02-02] MEDS: AMIODARONE 200 MG TABLET PO SCH ×2 (08:05→21:14)
[2021-02-02] MEDS: FUROSEMIDE 40 MG/4 ML VIAL IV SCH (08:05)
[2021-02-02] MEDS: oxyCODONE/ACETAMINOPHEN 5-325 MG TABLET PO PRN (08:05)
[2021-02-02] MEDS: APIXABAN 5 MG TABLET PO SCH ×2 (08:05→21:14)
[2021-02-02] MEDS: ASPIRIN EC 81 MG TABLET PO SCH (08:05)
[2021-02-02] MEDS: DOCUSATE SODIUM 100 MG CAPSULE PO SCH (08:05)
[2021-02-02] MEDS: lisinopriL 20 MG TABLET PO SCH (08:05)
[2021-02-02] MEDS: INSULIN REGULAR 100 UNIT/ML SUBCUT SCH ×4 (08:26→22:13)
[2021-02-02] MEDS: POLYETHYLENE GLYCOL POWDER 17 GM PACK PO SCH (08:26)
[2021-02-02] MEDS: PANTOPRAZOLE 40 MG TABLET PO SCH (08:26)
[2021-02-02] MEDS: CHLORHEXIDINE 0.12% ORAL RINSE 60 ML BOTTLE SWISH/SPIT SCH ×3 (08:26→22:14)
[2021-02-02] MEDS: FERROUS SULFATE 325 MG TABLET PO SCH ×2 (08:26→08:27)
[2021-02-02] MEDS ORDERED: LACTULOSE 20 GM/30 ML UDCUP PO PRN (09:02)
[2021-02-02] MEDS: FUROSEMIDE 40 MG TABLET PO SCH (09:02)
[2021-02-02] MEDS ORDERED: POTASSIUM CHLORIDE 20 MEQ TABLET PO ONE (10:31)
[2021-02-02] MEDS: ZALEPLON 5 MG CAPSULE PO PRN (21:13)
[2021-02-02] MEDS: ROSUVASTATIN 20 MG TABLET PO SCH (21:14)
[2021-02-03 04:40] LABS: Basophils % 0.1 % (0.0-0.8); Eosinophils # 0.1 10*3/uL (0.0-0.87); Eosinophils % 0.6 % (0.00-10.9); Hematocrit 36.1 VOL% (35.7-47.0); Hemoglobin 11.3 GM/DL (12.0-16.0); Immature Granulocytes % 1.2 %; Immature Granulocytes Absolute 0.13 #; Lymphocytes # 2.4 10*3/uL (1.4-4.0); Lymphocytes % 21.7 % (21.3-54.2); Mean Corpuscular HGB Conc 31.3 GM/DL (32-36); Mean Corpuscular Volume 92.1 FL (87-102); Mean Platelet Volume 10.1 FL (9.6-12.0); Monocytes % 10.7 % (1.7-12.7); Neutrophils % 65.7 % (38.7-73.9); Platelet Count 170 T/CUMM (130-400); Red Blood Count 3.92 MC/CUMM (3.8-5.5); Red Cell Distribution Width 14.6 % (9.3-17.3)
[2021-02-03 04:58] LABS: Alanine Aminotransferase 40 U/L (13-56); Albumin 2.7 G/DL (3.4-5.0); Alkaline Phosphatase 63 U/L (45-117); Aspartate Amino Transferase 23 U/L (0-37); Bilirubin,Indirect 0.6 MG/DL (0.0-1.0); Blood Urea Nitrogen 29 MG/DL (7-18); Calcium 8.5 MG/DL (8.5-10.1); Carbon Dioxide 31 MMOL/L (21-32); Estimated Glom Filtration Rate 84 ML/MIN; Glucose 109 MG/DL (74-106); Osmolality,Calculated 285.4 MOS/KG (273-304); Potassium 3.7 MMOL/L (3.5-5.1); Sodium 140 MMOL/L (136-145); Total Protein 5.3 G/DL (6.4-8.2)
[2021-02-03] MEDS: INSULIN REGULAR 100 UNIT/ML SUBCUT SCH ×4 (07:39→22:14)
[2021-02-03] MEDS: AMIODARONE 200 MG TABLET PO SCH ×2 (08:55→22:13)
[2021-02-03] MEDS: DOCUSATE SODIUM 100 MG CAPSULE PO SCH (08:55)
[2021-02-03] MEDS: FUROSEMIDE 40 MG TABLET PO SCH ×2 (08:55→16:49)
[2021-02-03] MEDS: POLYETHYLENE GLYCOL POWDER 17 GM PACK PO SCH (08:55)
[2021-02-03] MEDS: METOPROLOL TARTRATE 50 MG TABLET PO SCH ×2 (08:56→22:14)
[2021-02-03] MEDS: lisinopriL 20 MG TABLET PO SCH (08:56)
[2021-02-03] MEDS: PANTOPRAZOLE 40 MG TABLET PO SCH (08:56)
[2021-02-03] MEDS: ASCORBIC ACID 500 MG TABLET PO SCH ×2 (08:56→22:14)
[2021-02-03] MEDS: APIXABAN 5 MG TABLET PO SCH ×2 (08:56→22:13)
[2021-02-03] MEDS: ASPIRIN EC 81 MG TABLET PO SCH (08:56)
[2021-02-03] MEDS: FERROUS SULFATE 325 MG TABLET PO SCH (08:56)
[2021-02-03] MEDS: CHLORHEXIDINE 0.12% ORAL RINSE 60 ML BOTTLE SWISH/SPIT SCH ×2 (08:58→22:14)
[2021-02-03] MEDS: ZALEPLON 5 MG CAPSULE PO PRN (22:09)
[2021-02-03] MEDS: ROSUVASTATIN 20 MG TABLET PO SCH (22:13)
[2021-02-04 05:15] LABS: Basophils % 0.1 % (0.0-0.8); Eosinophils # 0.1 10*3/uL (0.0-0.87); Eosinophils % 0.8 % (0.00-10.9); Hematocrit 34.7 VOL% (35.7-47.0); Hemoglobin 11.1 GM/DL (12.0-16.0); Immature Granulocytes % 1.7 %; Immature Granulocytes Absolute 0.18 #; Lymphocytes # 2.4 10*3/uL (1.4-4.0); Lymphocytes % 22.6 % (21.3-54.2); Mean Corpuscular Volume 91.6 FL (87-102); Mean Platelet Volume 9.7 FL (9.6-12.0); Monocytes % 8.8 % (1.7-12.7); Platelet Count 184 T/CUMM (130-400); Red Blood Count 3.79 MC/CUMM (3.8-5.5); Red Cell Distribution Width 14.6 % (9.3-17.3); White Blood Count 10.8 T/CUMM (4-12)
[2021-02-04 05:31] LABS: Calcium 8.2 MG/DL (8.5-10.1); Osmolality,Calculated 285.3 MOS/KG (273-304); Potassium 3.3 MMOL/L (3.5-5.1)
[2021-02-04 05:36] LABS: Alanine Aminotransferase 31 U/L (13-56); Albumin 2.6 G/DL (3.4-5.0); Alkaline Phosphatase 65 U/L (45-117); Aspartate Amino Transferase 22 U/L (0-37); Bilirubin,Indirect 0.6 MG/DL (0.0-1.0); Blood Urea Nitrogen 23 MG/DL (7-18); Calcium 7.8 MG/DL (8.5-10.1); Carbon Dioxide 32 MMOL/L (21-32); Estimated Glom Filtration Rate 83 ML/MIN; Glucose 112 MG/DL (74-106); Osmolality,Calculated 283.4 MOS/KG (273-304); Potassium 3.4 MMOL/L (3.5-5.1); Sodium 140 MMOL/L (136-145); Total Protein 4.8 G/DL (6.4-8.2)
[2021-02-04] MEDS ORDERED: POTASSIUM CHLORIDE 20 MEQ TABLET PO ONE (08:25)
[2021-02-04] MEDS: POLYETHYLENE GLYCOL POWDER 17 GM PACK PO SCH (09:55)
[2021-02-04] MEDS: PANTOPRAZOLE 40 MG TABLET PO SCH (09:56)
[2021-02-04] MEDS: METOPROLOL TARTRATE 50 MG TABLET PO SCH ×2 (09:56→20:14)
[2021-02-04] MEDS: ASCORBIC ACID 500 MG TABLET PO SCH ×2 (09:56→20:14)
[2021-02-04] MEDS: APIXABAN 5 MG TABLET PO SCH ×2 (09:56→20:15)
[2021-02-04] MEDS: ASPIRIN EC 81 MG TABLET PO SCH (09:56)
[2021-02-04] MEDS: FUROSEMIDE 40 MG TABLET PO SCH ×2 (09:57→15:31)
[2021-02-04] MEDS: DOCUSATE SODIUM 100 MG CAPSULE PO SCH (09:57)
[2021-02-04] MEDS: lisinopriL 20 MG TABLET PO SCH (09:57)
[2021-02-04] MEDS: POTASSIUM CHLORIDE 20 MEQ TABLET PO SCH (09:57)
[2021-02-04] MEDS: FERROUS SULFATE 325 MG TABLET PO SCH (09:57)
[2021-02-04] MEDS: AMIODARONE 200 MG TABLET PO SCH ×2 (09:57→20:15)
[2021-02-04] MEDS: INSULIN REGULAR 100 UNIT/ML SUBCUT SCH ×4 (10:09→20:17)
[2021-02-04] MEDS: CHLORHEXIDINE 0.12% ORAL RINSE 60 ML BOTTLE SWISH/SPIT SCH ×2 (10:12→20:16)
[2021-02-04] MEDS: ROSUVASTATIN 20 MG TABLET PO SCH (20:15)
[2021-02-04] MEDS: ZALEPLON 5 MG CAPSULE PO PRN (20:15)
[2021-02-05 06:22] LABS: Basophils % 0.1 % (0.0-0.8); Eosinophils # 0.1 10*3/uL (0.0-0.87); Eosinophils % 0.8 % (0.00-10.9); Hemoglobin 11.2 GM/DL (12.0-16.0); Immature Granulocytes % 1.3 %; Immature Granulocytes Absolute 0.16 #; Lymphocytes # 2.8 10*3/uL (1.4-4.0); Lymphocytes % 22.8 % (21.3-54.2); Mean Corpuscular Volume 91.6 FL (87-102); Mean Platelet Volume 10.1 FL (9.6-12.0); Monocytes % 8.9 % (1.7-12.7); Neutrophils % 66.1 % (38.7-73.9); Platelet Count 209 T/CUMM (130-400); Red Blood Count 3.82 MC/CUMM (3.8-5.5); Red Cell Distribution Width 14.6 % (9.3-17.3); White Blood Count 12.5 T/CUMM (4-12)
[2021-02-05 07:10] LABS: Alanine Aminotransferase 31 U/L (13-56); Albumin 2.4 G/DL (3.4-5.0); Alkaline Phosphatase 65 U/L (45-117); Aspartate Amino Transferase 26 U/L (0-37); Bilirubin,Indirect 0.7 MG/DL (0.0-1.0); Blood Urea Nitrogen 17 MG/DL (7-18); Calcium 8.3 MG/DL (8.5-10.1); Carbon Dioxide 31 MMOL/L (21-32); Estimated Glom Filtration Rate 84 ML/MIN; Glucose 110 MG/DL (74-106); Osmolality,Calculated 281.4 MOS/KG (273-304); Potassium 3.6 MMOL/L (3.5-5.1); Sodium 140 MMOL/L (136-145); Total Protein 5.4 G/DL (6.4-8.2)
[2021-02-05] MEDS: CHLORHEXIDINE 0.12% ORAL RINSE 60 ML BOTTLE SWISH/SPIT SCH ×2 (10:14→21:20)
[2021-02-05] MEDS: POTASSIUM CHLORIDE 20 MEQ TABLET PO SCH (10:14)
[2021-02-05] MEDS: FUROSEMIDE 40 MG TABLET PO SCH ×2 (10:15→15:00)
[2021-02-05] MEDS: DOCUSATE SODIUM 100 MG CAPSULE PO SCH (10:15)
[2021-02-05] MEDS: METOPROLOL TARTRATE 50 MG TABLET PO SCH ×2 (10:15→21:20)
[2021-02-05] MEDS: FERROUS SULFATE 325 MG TABLET PO SCH (10:15)
[2021-02-05] MEDS: lisinopriL 20 MG TABLET PO SCH (10:15)
[2021-02-05] MEDS: APIXABAN 5 MG TABLET PO SCH ×2 (10:15→21:20)
[2021-02-05] MEDS: PANTOPRAZOLE 40 MG TABLET PO SCH (10:15)
[2021-02-05] MEDS: ASPIRIN EC 81 MG TABLET PO SCH (10:15)
[2021-02-05] MEDS: AMIODARONE 200 MG TABLET PO SCH ×2 (10:15→21:20)
[2021-02-05] MEDS: POLYETHYLENE GLYCOL POWDER 17 GM PACK PO SCH (10:19)
[2021-02-05] MEDS: ASCORBIC ACID 500 MG TABLET PO SCH ×2 (10:20→21:19)
[2021-02-05] MEDS: INSULIN REGULAR 100 UNIT/ML SUBCUT SCH ×4 (10:21→21:20)
[2021-02-05] MEDS: ROSUVASTATIN 20 MG TABLET PO SCH (21:19)
[2021-02-05] MEDS: ZALEPLON 5 MG CAPSULE PO PRN (21:28)
[2021-02-06 05:17] LABS: Basophils % 0.1 % (0.0-0.8); Eosinophils # 0.1 10*3/uL (0.0-0.87); Eosinophils % 0.9 % (0.00-10.9); Hemoglobin 10.7 GM/DL (12.0-16.0); Immature Granulocytes % 0.9 %; Lymphocytes # 2.6 10*3/uL (1.4-4.0); Lymphocytes % 23.5 % (21.3-54.2); Mean Corpuscular HGB Conc 31.5 GM/DL (32-36); Mean Corpuscular Volume 92.4 FL (87-102); Mean Platelet Volume 9.9 FL (9.6-12.0); Monocytes % 9.2 % (1.7-12.7); Neutrophils % 65.4 % (38.7-73.9); Platelet Count 232 T/CUMM (130-400); Red Blood Count 3.68 MC/CUMM (3.8-5.5); Red Cell Distribution Width 14.6 % (9.3-17.3)
[2021-02-06 05:57] LABS: Alanine Aminotransferase 26 U/L (13-56); Albumin 2.4 G/DL (3.4-5.0); Alkaline Phosphatase 65 U/L (45-117); Aspartate Amino Transferase 21 U/L (0-37); Bilirubin,Indirect 0.6 MG/DL (0.0-1.0); Blood Urea Nitrogen 22 MG/DL (7-18); Calcium 8.5 MG/DL (8.5-10.1); Carbon Dioxide 31 MMOL/L (21-32); Estimated Glom Filtration Rate 67 ML/MIN; Glucose 102 MG/DL (74-106); Osmolality,Calculated 281.4 MOS/KG (273-304); Potassium 3.4 MMOL/L (3.5-5.1); Sodium 140 MMOL/L (136-145); Total Protein 5.5 G/DL (6.4-8.2)
[2021-02-06] MEDS: INSULIN REGULAR 100 UNIT/ML SUBCUT SCH ×4 (09:37→21:21)
[2021-02-06] MEDS: PANTOPRAZOLE 40 MG TABLET PO SCH (09:51)
[2021-02-06] MEDS: APIXABAN 5 MG TABLET PO SCH ×2 (09:51→21:19)
[2021-02-06] MEDS: FUROSEMIDE 40 MG TABLET PO SCH ×3 (09:51→15:07)
[2021-02-06] MEDS: METOPROLOL TARTRATE 50 MG TABLET PO SCH ×2 (09:51→21:20)
[2021-02-06] MEDS: POTASSIUM CHLORIDE 20 MEQ TABLET PO SCH (09:52)
[2021-02-06] MEDS: lisinopriL 20 MG TABLET PO SCH (09:52)
[2021-02-06] MEDS: FERROUS SULFATE 325 MG TABLET PO SCH (09:52)
[2021-02-06] MEDS: DOCUSATE SODIUM 100 MG CAPSULE PO SCH (09:52)
[2021-02-06] MEDS: ASPIRIN EC 81 MG TABLET PO SCH (09:52)
[2021-02-06] MEDS: ASCORBIC ACID 500 MG TABLET PO SCH ×2 (09:52→21:21)
[2021-02-06] MEDS: AMIODARONE 200 MG TABLET PO SCH ×2 (09:54→21:20)
[2021-02-06] MEDS: CHLORHEXIDINE 0.12% ORAL RINSE 60 ML BOTTLE SWISH/SPIT SCH ×2 (09:57→21:21)
[2021-02-06] MEDS: POLYETHYLENE GLYCOL POWDER 17 GM PACK PO SCH (09:57)
[2021-02-06] MEDS: ROSUVASTATIN 20 MG TABLET PO SCH (21:19)
[2021-02-06] MEDS: ZALEPLON 5 MG CAPSULE PO PRN (21:20)
[2021-02-07 05:30] LABS: Basophils % 0.2 % (0.0-0.8); Eosinophils # 0.1 10*3/uL (0.0-0.87); Eosinophils % 0.5 % (0.00-10.9); Hematocrit 33.4 VOL% (35.7-47.0); Hemoglobin 10.6 GM/DL (12.0-16.0); Immature Granulocytes % 0.8 %; Immature Granulocytes Absolute 0.09 #; Lymphocytes # 2.5 10*3/uL (1.4-4.0); Lymphocytes % 21.8 % (21.3-54.2); Mean Corpuscular HGB Conc 31.7 GM/DL (32-36); Mean Corpuscular Volume 91.5 FL (87-102); Mean Platelet Volume 9.7 FL (9.6-12.0); Monocytes % 9.3 % (1.7-12.7); Neutrophils % 67.4 % (38.7-73.9); Platelet Count 245 T/CUMM (130-400); Red Blood Count 3.65 MC/CUMM (3.8-5.5); Red Cell Distribution Width 14.7 % (9.3-17.3); White Blood Count 11.4 T/CUMM (4-12)
[2021-02-07 05:46] LABS: Calcium 8.4 MG/DL (8.5-10.1); Osmolality,Calculated 285.1 MOS/KG (273-304); Potassium 3.4 MMOL/L (3.5-5.1)
[2021-02-07] MEDS ORDERED: POTASSIUM CHLORIDE 20 MEQ TABLET PO ONE (09:47)
[2021-02-07] MEDS: ASPIRIN EC 81 MG TABLET PO SCH (10:08)
[2021-02-07] MEDS: FERROUS SULFATE 325 MG TABLET PO SCH (10:08)
[2021-02-07] MEDS: APIXABAN 5 MG TABLET PO SCH ×2 (10:08→21:22)
[2021-02-07] MEDS: POTASSIUM CHLORIDE 20 MEQ TABLET PO SCH (10:09)
[2021-02-07] MEDS: lisinopriL 20 MG TABLET PO SCH (10:10)
[2021-02-07] MEDS: FUROSEMIDE 40 MG TABLET PO SCH (10:10)
[2021-02-07] MEDS: AMIODARONE 200 MG TABLET PO SCH ×2 (10:10→21:23)
[2021-02-07] MEDS: DOCUSATE SODIUM 100 MG CAPSULE PO SCH (10:11)
[2021-02-07] MEDS: PANTOPRAZOLE 40 MG TABLET PO SCH (10:11)
[2021-02-07] MEDS: POLYETHYLENE GLYCOL POWDER 17 GM PACK PO SCH (10:12)
[2021-02-07] MEDS: ASCORBIC ACID 500 MG TABLET PO SCH ×2 (10:12→21:23)
[2021-02-07] MEDS: CHLORHEXIDINE 0.12% ORAL RINSE 60 ML BOTTLE SWISH/SPIT SCH ×2 (10:13→21:23)
[2021-02-07] MEDS: METOPROLOL TARTRATE 50 MG TABLET PO SCH ×2 (10:13→21:23)
[2021-02-07] MEDS ORDERED: TUBERCULIN SKIN TEST 0.1 ML SYRINGE INTRADERM ONE (13:46)
[2021-02-07] MEDS: INSULIN REGULAR 100 UNIT/ML SUBCUT SCH ×3 (15:18→21:58)
[2021-02-07] MEDS: ROSUVASTATIN 20 MG TABLET PO SCH (21:22)
[2021-02-07] MEDS: ZALEPLON 5 MG CAPSULE PO PRN (21:27)
[2021-02-08] MEDS: AMIODARONE 200 MG TABLET PO SCH (08:47)
[2021-02-08] MEDS: METOPROLOL TARTRATE 50 MG TABLET PO SCH (08:47)
[2021-02-08] MEDS: PANTOPRAZOLE 40 MG TABLET PO SCH (08:47)
[2021-02-08] MEDS: ASCORBIC ACID 500 MG TABLET PO SCH (08:48)
[2021-02-08] MEDS: POTASSIUM CHLORIDE 20 MEQ TABLET PO SCH (08:48)
[2021-02-08] MEDS: ASPIRIN EC 81 MG TABLET PO SCH (08:48)
[2021-02-08] MEDS: FUROSEMIDE 40 MG TABLET PO SCH (08:48)
[2021-02-08] MEDS: lisinopriL 20 MG TABLET PO SCH (08:48)
[2021-02-08] MEDS: APIXABAN 5 MG TABLET PO SCH (08:49)
[2021-02-08] MEDS: FERROUS SULFATE 325 MG TABLET PO SCH (08:49)
[2021-02-08 12:29] VITALS: BP 92/53
[2021-02-08] MEDS: INSULIN REGULAR 100 UNIT/ML SUBCUT SCH (12:32)
[2021-02-08] MEDS: DOCUSATE SODIUM 100 MG CAPSULE PO SCH (12:32)
[2021-02-08] MEDS: POLYETHYLENE GLYCOL POWDER 17 GM PACK PO SCH (12:32)
[2021-02-08] MEDS: CHLORHEXIDINE 0.12% ORAL RINSE 60 ML BOTTLE SWISH/SPIT SCH (12:33)
== END 2021-02-08 13:27 | disposition swing bed (61) | DRG 233 ==
LOC: EDBD → EDUNIT# → N.ED 00:34 → SUATTDRO 03:03 → N.EDINP 03:03 → N.ICU 13:15 → N.CVR 01-28 12:12 → N.ICU 01-30 14:15 → N.TELES 02-02 13:49
PROVIDERS: ADMIT Family Medicine
PROC: CLCCHCL (ICD-10-PCS; 2021-01-26 14:15)

== ENCOUNTER 2021-04-30 08:49 | Inpatient (IN) ==
[2021-04-30 09:30] LABS: Basophils % 0.4 % (0.0-0.8); Eosinophils % 0.3 % (0.00-10.9); Hematocrit 34.3 VOL% (35.7-47.0); Immature Granulocytes % 0.4 %; Immature Granulocytes Absolute 0.03 #; Lymphocytes # 1.2 10*3/uL (1.4-4.0); Mean Corpuscular HGB Conc 32.1 GM/DL (32-36); Mean Platelet Volume 9.1 FL (9.6-12.0); Monocytes % 7.3 % (1.7-12.7); Neutrophils % 76.6 % (38.7-73.9); Platelet Count 250 T/CUMM (130-400); Red Blood Count 3.69 MC/CUMM (3.8-5.5); Red Cell Distribution Width 14.2 % (9.3-17.3); White Blood Count 7.9 T/CUMM (4-12)
[2021-04-30 10:01] LABS: Albumin 3.2 G/DL (3.4-5.0); Bilirubin,Total 0.5 MG/DL (0.20-1.00); Osmolality,Calculated 285.8 MOS/KG (273-304); Potassium 3.6 MMOL/L (3.5-5.1); Total Protein 6.7 G/DL (6.4-8.2)
[2021-04-30] MEDS ORDERED: METOPROLOL TARTRATE 50 MG TABLET PO STA (10:06)
[2021-04-30] MEDS ORDERED: lisinopriL 10 MG TABLET PO STA (10:06)
[2021-04-30] MEDS ORDERED: FUROSEMIDE 40 MG/4 ML VIAL IV STA (10:17)
[2021-04-30] MEDS ORDERED: GLUCAGON 1 MG VIAL IM PRN (10:42)
[2021-04-30] MEDS ORDERED: ONDANSETRON 4 MG/2 ML VIAL IV PRN (10:42)
[2021-04-30] MEDS ORDERED: ACETAMINOPHEN 325 MG TABLET PO PRN (10:42)
[2021-04-30] MEDS ORDERED: DOCUSATE SODIUM 100 MG CAPSULE PO PRN (10:48)
[2021-04-30] MEDS ORDERED: POTASSIUM CHLORIDE 20 MEQ TABLET PO STA (10:51)
[2021-04-30] MEDS ORDERED: DEXTROSE 10% 250 ML BAG IV PRN (11:13)
[2021-04-30] MEDS ORDERED: ENOXAPARIN 30 MG/0.3 ML SYRINGE SUBCUT SCH (13:00)
[2021-04-30] MEDS ORDERED: APIXABAN 5 MG TABLET PO SCH ×2 (13:30→21:00)
[2021-04-30] MEDS: APIXABAN 5 MG TABLET PO SCH ×2 (15:55→21:20)
[2021-04-30] MEDS: FUROSEMIDE 40 MG/4 ML VIAL IV SCH (16:18)
[2021-04-30] MEDS: ROSUVASTATIN 20 MG TABLET PO SCH (21:20)
[2021-04-30] MEDS: AMITRIPTYLINE 25 MG TABLET PO SCH (21:20)
[2021-04-30] MEDS: ASCORBIC ACID 500 MG TABLET PO SCH (21:20)
[2021-04-30] MEDS: METOPROLOL TARTRATE 50 MG TABLET PO SCH (21:20)
[2021-05-01 05:16] LABS: Basophils # 0.1 10*3/uL (0.0-0.2); Basophils % 0.7 % (0.0-0.8); Eosinophils # 0.1 10*3/uL (0.0-0.87); Eosinophils % 1.9 % (0.00-10.9); Hematocrit 35.2 VOL% (35.7-47.0); Hemoglobin 11.3 GM/DL (12.0-16.0); Immature Granulocytes % 0.5 %; Immature Granulocytes Absolute 0.04 #; Lymphocytes # 2.7 10*3/uL (1.4-4.0); Lymphocytes % 36.7 % (21.3-54.2); Mean Corpuscular HGB Conc 32.1 GM/DL (32-36); Mean Corpuscular Volume 93.9 FL (87-102); Mean Platelet Volume 9.2 FL (9.6-12.0); Monocytes % 10.5 % (1.7-12.7); Neutrophils % 49.7 % (38.7-73.9); Platelet Count 248 T/CUMM (130-400); Red Blood Count 3.75 MC/CUMM (3.8-5.5); Red Cell Distribution Width 14.4 % (9.3-17.3); White Blood Count 7.4 T/CUMM (4-12)
[2021-05-01 05:42] LABS: Calcium 8.8 MG/DL (8.5-10.1); Potassium 4.1 MMOL/L (3.5-5.1); Risk Ratio 2.58; Thyroid Stimulating Hormone 2.94 uIU/ml (0.358-3.74); VLDL Cholesterol 14.6 MG/DL
[2021-05-01] MEDS: AMIODARONE 200 MG TABLET PO SCH (10:49)
[2021-05-01] MEDS: FUROSEMIDE 40 MG/4 ML VIAL IV SCH ×2 (10:49→17:44)
[2021-05-01] MEDS: POTASSIUM CHLORIDE 20 MEQ TABLET PO SCH (10:50)
[2021-05-01] MEDS: ASCORBIC ACID 500 MG TABLET PO SCH ×2 (10:50→21:02)
[2021-05-01] MEDS: METOPROLOL TARTRATE 50 MG TABLET PO SCH ×2 (10:50→21:02)
[2021-05-01] MEDS: APIXABAN 5 MG TABLET PO SCH ×2 (10:50→21:02)
[2021-05-01] MEDS: lisinopriL 20 MG TABLET PO SCH (10:50)
[2021-05-01] MEDS: ROSUVASTATIN 20 MG TABLET PO SCH (21:02)
[2021-05-01] MEDS: AMITRIPTYLINE 25 MG TABLET PO SCH (21:02)
[2021-05-02 04:39] LABS: Basophils # 0.1 10*3/uL (0.0-0.2); Basophils % 0.6 % (0.0-0.8); Eosinophils # 0.1 10*3/uL (0.0-0.87); Eosinophils % 1.4 % (0.00-10.9); Hematocrit 36.5 VOL% (35.7-47.0); Hemoglobin 11.5 GM/DL (12.0-16.0); Immature Granulocytes % 0.3 %; Immature Granulocytes Absolute 0.03 #; Lymphocytes % 35.3 % (21.3-54.2); Mean Corpuscular HGB Conc 31.5 GM/DL (32-36); Mean Corpuscular Volume 93.1 FL (87-102); Monocytes % 9.4 % (1.7-12.7); Platelet Count 244 T/CUMM (130-400); Red Blood Count 3.92 MC/CUMM (3.8-5.5); Red Cell Distribution Width 14.4 % (9.3-17.3); White Blood Count 8.6 T/CUMM (4-12)
[2021-05-02 05:00] LABS: Calcium 8.9 MG/DL (8.5-10.1); Osmolality,Calculated 288.8 MOS/KG (273-304); Potassium 3.6 MMOL/L (3.5-5.1)
[2021-05-02] MEDS: METOPROLOL TARTRATE 50 MG TABLET PO SCH (09:50)
[2021-05-02] MEDS: POTASSIUM CHLORIDE 20 MEQ TABLET PO SCH (09:50)
[2021-05-02] MEDS: FUROSEMIDE 40 MG/4 ML VIAL IV SCH (09:50)
[2021-05-02] MEDS: lisinopriL 20 MG TABLET PO SCH (09:51)
[2021-05-02] MEDS: ASCORBIC ACID 500 MG TABLET PO SCH (09:51)
[2021-05-02] MEDS: AMIODARONE 200 MG TABLET PO SCH (09:51)
[2021-05-02] MEDS: APIXABAN 5 MG TABLET PO SCH (09:51)
[2021-05-02 12:27] VITALS: BP 125/97
[2021-05-02] MEDS ORDERED: RIVAROXABAN 15 MG TABLET PO SCH (17:00)
[2021-05-03] MEDS ORDERED: FUROSEMIDE 40 MG TABLET PO SCH (09:00)
[2021-05-08] MEDS ORDERED: APIXABAN 5 MG TABLET PO SCH (09:00)
== END 2021-05-02 14:50 | disposition home or self-care (01) | DRG 175 ==
LOC: EDUNIT# → EDBD → SUATTDRO → N.ED 08:49 → N.TELEN 08:49 → SUATTDRO 05-01 08:38
PROVIDERS: ADMIT Hospitalist; ATTEND Internal Medicine

== ENCOUNTER 2021-06-13 12:28 | Inpatient (IN) ==
[2021-06-13] MEDS ORDERED: GLUCAGON 1 MG VIAL IM PRN (14:41)
[2021-06-13] MEDS ORDERED: ONDANSETRON 4 MG/2 ML VIAL IV PRN (14:41)
[2021-06-13] MEDS ORDERED: hydrALAZINE 20 MG/1 ML VIAL IV PRN (14:41)
[2021-06-13] MEDS ORDERED: DEXTROSE 10% 250 ML BAG IV PRN (14:41)
[2021-06-13 14:47] LABS: Basophils % 0.5 % (0.0-0.8); Eosinophils % 0.5 % (0.00-10.9); Hematocrit 24.9 VOL% (35.7-47.0); Hemoglobin 7.9 GM/DL (12.0-16.0); Immature Granulocytes % 0.3 %; Immature Granulocytes Absolute 0.02 #; Lymphocytes # 2.4 10*3/uL (1.4-4.0); Lymphocytes % 35.7 % (21.3-54.2); Mean Corpuscular HGB Conc 31.7 GM/DL (32-36); Mean Platelet Volume 9.8 FL (9.6-12.0); Monocytes # 0.5 10*3/uL (0.11-0.8); Monocytes % 7.4 % (1.7-12.7); Neutrophils % 55.6 % (38.7-73.9); Platelet Count 236 T/CUMM (130-400); Red Blood Count 2.62 MC/CUMM (3.8-5.5); Red Cell Distribution Width 13.9 % (9.3-17.3); White Blood Count 6.6 T/CUMM (4-12)
[2021-06-13 15:06] LABS: Albumin 3.2 G/DL (3.4-5.0); Bilirubin,Total 0.4 MG/DL (0.20-1.00); Calcium 9.5 MG/DL (8.5-10.1); Osmolality,Calculated 276.5 MOS/KG (273-304); Potassium 3.3 MMOL/L (3.5-5.1); Total Protein 6.6 G/DL (6.4-8.2)
[2021-06-13] MEDS ORDERED: POTASSIUM CHLORIDE 20 MEQ TABLET PO ONE (16:00)
[2021-06-13 16:02] LABS: INR 1.1; PT Patient Result 12.5 SECS (10.5-12.0)
[2021-06-13 17:34] LABS: Hematocrit 24.1 VOL% (35.7-47.0); Hemoglobin 7.6 GM/DL (12.0-16.0)
[2021-06-13] MEDS: PANTOPRAZOLE 40 MG VIAL IV SCH (21:37)
[2021-06-13 23:02] LABS: Hematocrit 21.9 VOL% (35.7-47.0)
[2021-06-14 05:20] LABS: Basophils % 0.5 % (0.0-0.8); Eosinophils # 0.1 10*3/uL (0.0-0.87); Eosinophils % 1.2 % (0.00-10.9); Hematocrit 22.4 VOL% (35.7-47.0); Immature Granulocytes % 0.2 %; Immature Granulocytes Absolute 0.01 #; Lymphocytes # 2.3 10*3/uL (1.4-4.0); Lymphocytes % 39.1 % (21.3-54.2); Mean Corpuscular HGB Conc 31.3 GM/DL (32-36); Mean Platelet Volume 10.5 FL (9.6-12.0); Monocytes # 0.6 10*3/uL (0.11-0.8); Monocytes % 10.2 % (1.7-12.7); Neutrophils % 48.8 % (38.7-73.9); Platelet Count 210 T/CUMM (130-400); Red Blood Count 2.31 MC/CUMM (3.8-5.5); Red Cell Distribution Width 14.1 % (9.3-17.3)
[2021-06-14 05:29] LABS: INR 1.1; PT Patient Result 11.8 SECS (10.5-12.0)
[2021-06-14 05:43] LABS: % Iron Saturation 7.3 % (18-50); Ferritin 38.8 ng/mL (8-252)
[2021-06-14 05:52] LABS: Calcium 8.9 MG/DL (8.5-10.1); Osmolality,Calculated 288.7 MOS/KG (273-304); Potassium 4.2 MMOL/L (3.5-5.1)
[2021-06-14] MEDS ORDERED: SODIUM CHLORIDE 0.9% 1,000 ML IV PRN (09:28)
[2021-06-14] MEDS: PANTOPRAZOLE 40 MG VIAL IV SCH ×2 (09:55→20:59)
[2021-06-14 11:39] LABS: Hematocrit 23.6 VOL% (35.7-47.0); Hemoglobin 7.2 GM/DL (12.0-16.0)
[2021-06-14] MEDS: FERROUS SULFATE 325 MG TABLET PO SCH (20:59)
[2021-06-14] MEDS: DOCUSATE SODIUM 100 MG CAPSULE PO SCH (20:59)
[2021-06-15 09:10] LABS: Basophils % 0.3 % (0.0-0.8); Eosinophils % 0.1 % (0.00-10.9); Hematocrit 27.1 VOL% (35.7-47.0); Hemoglobin 8.6 GM/DL (12.0-16.0); Immature Granulocytes % 0.4 %; Immature Granulocytes Absolute 0.04 #; Lymphocytes # 1.7 10*3/uL (1.4-4.0); Lymphocytes % 17.7 % (21.3-54.2); Mean Corpuscular HGB Conc 31.7 GM/DL (32-36); Mean Corpuscular Volume 95.4 FL (87-102); Mean Platelet Volume 9.2 FL (9.6-12.0); Monocytes # 0.8 10*3/uL (0.11-0.8); Monocytes % 7.8 % (1.7-12.7); Neutrophils % 73.7 % (38.7-73.9); Platelet Count 245 T/CUMM (130-400); Red Blood Count 2.84 MC/CUMM (3.8-5.5); Red Cell Distribution Width 13.9 % (9.3-17.3); White Blood Count 9.9 T/CUMM (4-12)
[2021-06-15] MEDS ORDERED: DIAZEPAM 5 MG TABLET PO ONE (09:15)
[2021-06-15] MEDS ORDERED: SODIUM CHLORIDE 0.45% 1,000 ML IV SCH (09:30)
[2021-06-15 09:33] LABS: Albumin 3.3 G/DL (3.4-5.0); Bilirubin,Total 0.5 MG/DL (0.20-1.00); Calcium 9.3 MG/DL (8.5-10.1); Potassium 3.9 MMOL/L (3.5-5.1); Total Protein 6.8 G/DL (6.4-8.2)
[2021-06-15] MEDS: LACTATED RINGERS 1,000 ML IV SCH (11:04)
[2021-06-15] MEDS ORDERED: LIDOCAINE 2% 5 ML VIAL ONE (11:53)
[2021-06-15] MEDS ORDERED: ETOMIDATE 20 MG/10 ML VIAL IV ONE (11:53)
[2021-06-15] MEDS ORDERED: propofoL 200 MG/20 ML VIAL IV ONE (11:53)
[2021-06-15] MEDS: DOCUSATE SODIUM 100 MG CAPSULE PO SCH ×2 (14:06→21:38)
[2021-06-15] MEDS: FERROUS SULFATE 325 MG TABLET PO SCH ×2 (14:07→21:38)
[2021-06-15] MEDS: PANTOPRAZOLE 40 MG VIAL IV SCH ×2 (17:15→21:38)
[2021-06-16 05:29] LABS: Basophils % 0.4 % (0.0-0.8); Eosinophils # 0.2 10*3/uL (0.0-0.87); Eosinophils % 2.3 % (0.00-10.9); Hematocrit 24.2 VOL% (35.7-47.0); Hemoglobin 7.6 GM/DL (12.0-16.0); Immature Granulocytes % 0.3 %; Immature Granulocytes Absolute 0.02 #; Lymphocytes # 2.7 10*3/uL (1.4-4.0); Lymphocytes % 38.3 % (21.3-54.2); Mean Corpuscular HGB Conc 31.4 GM/DL (32-36); Mean Corpuscular Volume 94.9 FL (87-102); Mean Platelet Volume 10.2 FL (9.6-12.0); Monocytes # 0.7 10*3/uL (0.11-0.8); Monocytes % 9.9 % (1.7-12.7); Neutrophils % 48.8 % (38.7-73.9); Platelet Count 225 T/CUMM (130-400); Red Blood Count 2.55 MC/CUMM (3.8-5.5); Red Cell Distribution Width 13.9 % (9.3-17.3); White Blood Count 7.1 T/CUMM (4-12)
[2021-06-16 05:52] LABS: Bilirubin,Total 0.8 MG/DL (0.20-1.00); Calcium 8.9 MG/DL (8.5-10.1); Osmolality,Calculated 278.3 MOS/KG (273-304); Potassium 3.1 MMOL/L (3.5-5.1); Total Protein 6.1 G/DL (6.4-8.2)
[2021-06-16] MEDS: PANTOPRAZOLE 40 MG TABLET PO SCH ×2 (08:35→20:18)
[2021-06-16] MEDS: DOCUSATE SODIUM 100 MG CAPSULE PO SCH ×2 (08:36→20:18)
[2021-06-16] MEDS: FERROUS SULFATE 325 MG TABLET PO SCH ×2 (08:36→20:18)
[2021-06-16] MEDS ORDERED: POTASSIUM CHLORIDE 20 MEQ TABLET PO ONE (11:00)
[2021-06-16] MEDS ORDERED: SODIUM CHLORIDE 0.9% 1,000 ML IV PRN (11:51)
[2021-06-16] MEDS ORDERED: BISACODYL 5 MG TABLET PO ONE (15:00)
[2021-06-16] MEDS ORDERED: POLYETHYLENE GLYCOL POWDER 255 GM BOTTLE PO ONE (18:00)
[2021-06-16] MEDS ORDERED: MAGNESIUM CITRATE 300 ML BOTTLE PO ONE (21:00)
[2021-06-17 05:16] LABS: Basophils % 0.3 % (0.0-0.8); Eosinophils # 0.1 10*3/uL (0.0-0.87); Eosinophils % 1.3 % (0.00-10.9); Hemoglobin 9.5 GM/DL (12.0-16.0); Immature Granulocytes % 0.3 %; Immature Granulocytes Absolute 0.02 #; Lymphocytes % 25.4 % (21.3-54.2); Mean Corpuscular HGB Conc 31.7 GM/DL (32-36); Mean Corpuscular Volume 94.3 FL (87-102); Mean Platelet Volume 10.3 FL (9.6-12.0); Monocytes # 0.8 10*3/uL (0.11-0.8); Monocytes % 9.9 % (1.7-12.7); Neutrophils % 62.8 % (38.7-73.9); Platelet Count 200 T/CUMM (130-400); Red Blood Count 3.18 MC/CUMM (3.8-5.5)
[2021-06-17 05:26] LABS: PT Patient Result 11.2 SECS (10.5-12.0)
[2021-06-17 05:34] LABS: Albumin 3.2 G/DL (3.4-5.0); Bilirubin,Total 0.8 MG/DL (0.20-1.00); Calcium 8.9 MG/DL (8.5-10.1); Osmolality,Calculated 280.1 MOS/KG (273-304); Potassium 3.1 MMOL/L (3.5-5.1); Total Protein 6.4 G/DL (6.4-8.2)
[2021-06-17] MEDS ORDERED: LACTATED RINGERS 1,000 ML IV SCH (08:00)
[2021-06-17] MEDS: POTASSIUM CHLORIDE RIDER 10 MEQ/100 ML PREMIX IV SCH ×4 (10:00→16:22)
[2021-06-17] MEDS ORDERED: LIDOCAINE 2% 5 ML VIAL ONE (12:08)
[2021-06-17] MEDS ORDERED: propofoL 200 MG/20 ML VIAL IV ONE (12:08)
[2021-06-17] MEDS ORDERED: IRON SUCROSE 100 MG/5 ML VIAL IV SCH (13:35)
[2021-06-17] MEDS: DOCUSATE SODIUM 100 MG CAPSULE PO SCH (14:40)
[2021-06-17] MEDS: PANTOPRAZOLE 40 MG TABLET PO SCH (14:40)
[2021-06-17] MEDS: FERROUS SULFATE 325 MG TABLET PO SCH (14:40)
[2021-06-17] MEDS ORDERED: FERRIC GLUCONATE COMPLEX 125 MG in SODIUM CHLORIDE 0.9% 100 ML IV SCH (15:00)
[2021-06-17] MEDS ORDERED: POTASSIUM CHLORIDE 10 MEQ TABLET PO ONE (15:35)
[2021-06-17] MEDS ORDERED: POTASSIUM CHLORIDE 20 MEQ TABLET PO ONE (15:35)
[2021-06-17] MEDS: LACTATED RINGERS 1,000 ML IV SCH (16:21)
[2021-06-17 18:34] VITALS: BP 122/51
== END 2021-06-17 17:50 | disposition home or self-care (01) | DRG 813 ==
LOC: N.5E → OBSVTOIN 13:40 → SUATTDRO 13:40
PROVIDERS: ADMIT Internal Medicine; ATTEND Internal Medicine